=== PATIENT | male | born 1955 | race Caucasian/White ===

== ENCOUNTER 2017-03-02 14:16 | Emergency (ER) | payer BC ==
[~2017-03-02] VITALS: Ht 185.4 cm; Wt 106.6 kg
[2017-03-02 14:16] VITALS: BP_SYST 121
[2017-03-02] MEDS ORDERED: LIDOCAINE VISCOUS 2%, 15 ML UDC MM ONE (15:15)
[2017-03-02 16:00] VITALS: BP_SYST 124
== END 2017-03-02 15:57 | disposition home or self-care (01) ==
LOC: SED 14:16
DX: L98.499 Non-pressure chronic ulcer of skin of other sites with unspecified severity (principal); K62.89 Other specified diseases of anus and rectum; I10 Essential (primary) hypertension; E78.5 Hyperlipidemia, unspecified; Z88.6 Allergy status to analgesic agent
CPT/HCPCS: 99283; J2001

== ENCOUNTER 2017-03-07 08:52 | Inpatient (IN) | payer BC ==
[~2017-03-07] VITALS: Ht 185.4 cm; Wt 103.4 kg
[2017-03-07] VITALS (7 sets, daily range): BP systolic 91–135
--- NOTE | 2017-03-07 09:00 | NUR ---
PT PLACED IN BED 7, REPORT ENDORSED TO EDER TRINH
--- NOTE | 2017-03-07 09:00 | NUR ---
Pt bib for further eval of rectal ulcers, no improvement last visit here on 03/02/17, was toldby primary PMD to return to ER for further eval.
--- NOTE | 2017-03-07 09:05 | NUR ---
Pt ambulated into ED c/c rectal ulcers. Pt states that he came to [facility] last sunday for the same problem and initially went to PMD today, but was recommended to come to ED. Upon inspection, skin non-intact, necrosis present on sacrum. No other injuries/complaints noted/per pt.
--- NOTE | 2017-03-07 09:08 | NUR ---
ER Dr. JENNINGS at bedside examining patient.
[2017-03-07] MEDS ORDERED: NACL 0.9% 1,000 ML IV SCH (09:10)
[2017-03-07] MEDS ORDERED: MORPHINE 2 MG/ML INJ. SYRINGE IVP ONE (09:15)
[2017-03-07] MEDS ORDERED: ONDANSETRON HCL 4 MG/2 ML VIAL IVP ONE (09:15)
--- NOTE | 2017-03-07 09:20 | NUR ---
Pt ambulated to radiology in stable condition.
--- NOTE | 2017-03-07 09:24 | NUR ---
Pt ambulated from radiology in stable condition.
--- NOTE | 2017-03-07 09:31 | NUR ---
Medication administered. Pt alex well. No adverse reactions noted.
--- NOTE | 2017-03-07 09:40 | NUR ---
Medication administered. Pt alex well. No adverse reactions noted.
[2017-03-07 09:46] LABS: BASOPHILS # (AUTO) 0.1 K/uL (0.0-0.2); BASOPHILS % (AUTO) 0.7 % (0.0-2.0); CALCIUM 8.8 mg/dL (8.4-11.0); CREATININE 1.17 mg/dL (0.55-1.30); EOSINOPHILS # (AUTO) 0.1 K/uL (0.0-0.4); EOSINOPHILS % (AUTO) 1.1 % (0.0-4.0); HEMATOCRIT 35.6 % (36-54); HEMOGLOBIN 11.9 g/dL (14.0-18.0); LYMPHOCYTES # (AUTO) 2.2 K/uL (1.0-5.5); LYMPHOCYTES % (AUTO) 17.1 % (20.5-51.5); MEAN CORPUSCULAR HEMOGLOBIN 31 pg (27-31); MEAN CORPUSCULAR HGB CONC 34 % (32-36); MEAN CORPUSCULAR VOLUME 93 fL (79.0-98.0); MONOCYTES # (AUTO) 0.3 K/uL (0.0-1.0); MONOCYTES % (AUTO) 2.4 % (1.7-9.3); NEUTROPHILS # (AUTO) 10.4 K/uL (1.8-7.7); NEUTROPHILS % (AUTO) 78.7 % (40.0-70.0); PLATELET COUNT (AUTO) 635 K/uL (130-430); POTASSIUM 3.5 mmol/L (3.5-5.1); RED BLOOD CELL COUNT(AUTO) 3.81 MIL/uL (4.2-6.2); RED CELL DISTRIBUTION WIDTH 14.1 % (9.0-15.0); WHITE BLOOD COUNT (AUTO) 13.1 K/uL (4.8-10.8)
[2017-03-07 09:48] LABS: PROTHROMBIN TIME 10.4 SECS (9.5-12.5)
--- NOTE | 2017-03-07 09:50 | NUR ---
Pt's anus was cleaned with betadine and ns, Dr Almaguer at bedside checking wound.
[2017-03-07 09:51] LABS: ALBUMIN 2.6 g/dL (3.4-4.8); TOTAL BILIRUBIN 0.6 mg/dL (0.0-1.0)
[2017-03-07] MEDS ORDERED: PIPERACILLIN/TAZOBACTAM 3.375 GM/VIAL (ZOSYN) IV ONE (09:54)
[2017-03-07] MEDS ORDERED: PIPERACILLIN/TAZO 3.375 GM in NS 50 ML IV ONE (10:00)
--- NOTE | 2017-03-07 10:08 | NUR ---
Patient will be admitted to [facility]. Admitted to TELEMETRY unit. Will go to room 120B. Belongings list completed. Summary report printed. Report will be given at bedside. Patient given written and verbal discharge instructions and verbalizes understanding. ER MD discussed with patient the results and treatment provided. Patient in stable condition. ID arm band removed. IV catheter removed intact and dressing applied, no active bleeding. Rx of [] given. Patient educated on pain management and to follow up with PMD. Pain Scale []. Opportunity for questions provided and answered.
[2017-03-07] MEDS ORDERED: METO50TA7 PO (10:16)
[2017-03-07] MEDS ORDERED: AMOX-423 PO (10:16)
[2017-03-07] MEDS ORDERED: HYDR-4100 PO (10:16)
[2017-03-07] MEDS ORDERED: LOSA1TAB36 PO (10:16)
[2017-03-07] MEDS ORDERED: LIP80 PO (10:16)
--- NOTE | 2017-03-07 10:26 | NUR ---
ADMISSION NOTE Received patient from ER via gurney. Patient admitted with diagnosis of perianal abscess. Patient is awake, alert, oriented X 3. Patient oriented to hospital room, call light, toileting, pain management and safety-teach back done. Patient informed that tobias will be his nurse and that their room number is 120B. Personal belongings checked and Belongings List documented. Call light within reach.
--- NOTE | 2017-03-07 10:28 | NUR ---
CONSULTATION PAGED REASON FOR CONSULTATION: SURGERY WAS CONSULT CALLED?: Y PERSON WHO WAS NOTIFIED: BLOSSOM CONSULTING PHYSICIAN: SERGIO HASSAN PALAEONTOLOGIST SPECIALTY: GENERAL DESIGN ENGINEERING INTERN PHONE NUMBER: [phone] REQUESTING PHYSICIAN: Kartik YOUNGUHAIR
[2017-03-07] MEDS ORDERED: NACL 0.9% 1,000 ML IV ONE (10:30)
[2017-03-07 11:20] LABS: BILIRUBIN,URINE NEGATIVE (NEGATIVE); BLOOD, URINE NEGATIVE (NEGATIVE); CLARITY/URINE CLEAR (CLEAR); COLOR,URINE YELLOW (YELLOW); GLUCOSE,URINE NEGATIVE (NEGATIVE); KETONES,URINE NEGATIVE (NEGATIVE); LEUKOCYTE ESTERASE ,URINE NEGATIVE (NEGATIVE); NITRITE, URINE NEGATIVE (NEGATIVE); PROTEIN URINE NEGATIVE (NEGATIVE); UROBILINOGEN,URINE 0.2 (0.2-1.0)
--- NOTE | 2017-03-07 13:00 | NUR ---
ROUNDS PT RESTING IN BED WITH AT BEDSIDE. C/O PAIN 09/09 BUT DOES NOT HAVE ANY PAIN MEDICATION ORDERED. CALL PLACED TO DR. MORTON. WILL WAIT FOR RETURN CALL. Addendum: 03/07/17 at 1305 by Annette Anderson RN SPOKE WITH DR. MORTON. PAIN MEDICATION ORDERS RECEIVED AND CARRIED OUT.
[2017-03-07] MEDS: MORPHINE 4 MG/ML INJ. SYRINGE IVP PRN ×3 (13:16→22:15)
--- NOTE | 2017-03-07 14:35 | NUR ---
ROUNDS PT AMBULATING IN ROOM IN NO ACUTE DISTRESS. WAITING TO BE SEEN BY DR. MARSHALL FOR SURGICAL CONSULT. PT STILL NOTED TO HAVE FOUL SMELLING DRAINAGE COMING FROM RECTAL ABSCESS. ABD DRESSING IN PLACE TO ABSORB DRAINAGE. SAFETY MEASURES IN PLACE WITH CALL LIGHT WITHIN REACH. PT ENCOURAGED TO USE CALL LIGHT FOR ASSISTANCE. VERBALIZED UNDERSTANDING.
[2017-03-07] MEDS ORDERED: DIATR MEGLU/DIATRIZ SOD 30 ML SOLUTION PO ONE (15:58)
--- NOTE | 2017-03-07 15:58 | NUR ---
MD ROUNDS PT SEEN AND EXAMINED BY DR. MORTON. ORDERS RECEIVED TO D/C TELE, FOR IVF AND FOR A CT ABD/PELVIS. PT AWARE OF POC. TELEMETRY REMOVED, CHARGE NURSE HILARY AND TAKE OUT WAITER AWARE OF STATUS CHANGE TO MED/SURG. PT DENIES ANY PAIN AT THIS TIME. STILL WAITING TO BE SEEN BY DR. MARSHALL. SAFETY MEASURES AND CALL LIGHT WITHIN REACH. PT ENCOURAGED TO USE CALL LIGHT FOR ASSISTANCE. VERBALIZED UNDERSTANDING.
--- NOTE | 2017-03-07 17:08 | NUR ---
MD ROUNDS PT SEEN AND EXAMINED BY DR. MARSHALL. PICTURES OF PERIANAL ABSCESS/WOUND TAKEN WITH THE ASSISTANCE OF DR. MARSHALL. PT UPDATED ON POC INCLUDING POSSIBLE SURGERY FOR TOMORROW. ENCOURAGED PT TO CONTINUE DRINKING CONTRAST. PT VERBALIZED UNDERSTANDING. WOUND CULTURES TAKEN AND SENT TO LAB. CALL LIGHT WITHIN REACH. PT ENCOURAGED TO USE CALL LIGHT FOR ASSISTANCE. VERBALIZED UNDERSTANDING.
[2017-03-07] MEDS: KCL 20 mEq in D5NS 1000 mL 1,000 ML IV SCH (18:09)
[2017-03-07] MEDS: PIPERACILLIN/TAZO 3.375/DEX-IS 50 ML IV SCH ×2 (18:14→23:45)
--- NOTE | 2017-03-07 18:45 | NUR ---
CLOSING NOTE PT RESTING COMFORTABLY AT THIS TIME, RECENTLY MEDICATED FOR PAIN. MRSA SWAB TAKEN AND SENT TO LAB. PT FINISHED ORAL CONTRAST AND IS WAITING TO HAVE CT A/P DONE. IVF INFUSING WELL INTO LT FA, NO S/S OF INFILTRATION NOTED. SAFETY MEASURES IN PLACE WITH CALL LIGHT WITHIN REACH. PT ENCOURAGED TO USE CALL LIGHT FOR ASSISTANCE. PT VERBALIZED UNDERSTANDING. WILL ENDORSE TO SITE DIRECTOR NURSE.
--- NOTE | 2017-03-07 20:00 | NUR ---
INITIAL NOTES Received patient, awake and alert, standing on the bedside tolerating without signs of distress and SOB. Vitals stable, with current pain o 5/10 manageable. Encouraged deep breathing exercises, explained the plan of care and verbalized understanding. With IV on the Left AC, 20g infusing well, clean dry intact. With foul smelling rectal abscess observed with drainage, grayish in color. Maintained on position of comfort. Call light within reach, will continue to monitor.
[2017-03-07] MEDS ORDERED: IOHEXOL 100 ML IV ONE (20:42)
--- NOTE | 2017-03-07 21:15 | NUR ---
PAGED paged to ask if the patient can have snack before having on NPO at midnight, okayed, orders made and carried out.
--- NOTE | 2017-03-07 22:00 | NUR ---
RN ROUNDS Patient on bed awake and alert and resting, maintained on position of comfort, breathing even and unlabored, no SOB noted, call light within reach will continue to monitor.
--- NOTE | 2017-03-08 00:07 | NUR ---
RN ROUNDS Patient on bed sleeping and resting, breathing even and unlabored, no SOB noted, call light within reach will continue to monitor. Addendum: 03/08/17 at 0655 by Alison Sellers RN Maintained on NPO post midnight verbalized understanding
--- NOTE | 2017-03-08 02:00 | NUR ---
RN ROUNDS Patient on bed sleeping and resting, no SOB noted, breathing even and unlabored, call light within reach will continue to monitor.
[2017-03-08] MEDS: MORPHINE 4 MG/ML INJ. SYRINGE IVP PRN ×6 (02:23→22:54)
[2017-03-08 03:50] VITALS: BP_SYST 108
--- NOTE | 2017-03-08 04:00 | NUR ---
RN ROUNDS Patient asleep on bed, no distress noted no sob noted, no pain noted, call light within reach, will continue to monitor.
[2017-03-08] MEDS: PIPERACILLIN/TAZO 3.375/DEX-IS 50 ML IV SCH ×4 (05:08→23:04)
--- NOTE | 2017-03-08 05:13 | NUR ---
rn notes laundry route driver at the bedside to assist with chg bath. iv abx hung and infusing well as ordered. no adverse reactions noted. will cont. to monitor. call light in reach.
[2017-03-08] MEDS: KCL 20 mEq in D5NS 1000 mL 1,000 ML IV SCH ×2 (05:35→16:44)
--- NOTE | 2017-03-08 06:55 | NUR ---
CLOSING NOTES Patient on bed sleeping and resting, breathing even and unlabored, no SOB noted. patient has pain of 8/10 all due medications given, maintained safety precaution, all needs met, IV infusing well, DR. Sauceda called and asked for consents, and patient on NPO, and if the results are in. Patient verbalized having a restful sleep, will endorse care to AM nurse, call light within reach, will continue to monitor.
[2017-03-08 07:04] LABS: BASOPHILS # (AUTO) 0.1 K/uL (0.0-0.2); BASOPHILS % (AUTO) 0.8 % (0.0-2.0); EOSINOPHILS # (AUTO) 0.2 K/uL (0.0-0.4); HEMATOCRIT 30.9 % (36-54); HEMOGLOBIN 10.4 g/dL (14.0-18.0); LYMPHOCYTES % (AUTO) 21.5 % (20.5-51.5); MEAN CORPUSCULAR HEMOGLOBIN 32 pg (27-31); MEAN CORPUSCULAR HGB CONC 34 % (32-36); MEAN CORPUSCULAR VOLUME 95 fL (79.0-98.0); MONOCYTES # (AUTO) 0.6 K/uL (0.0-1.0); MONOCYTES % (AUTO) 6.5 % (1.7-9.3); NEUTROPHILS # (AUTO) 6.5 K/uL (1.8-7.7); NEUTROPHILS % (AUTO) 69.2 % (40.0-70.0); PLATELET COUNT (AUTO) 548 K/uL (130-430); RED BLOOD CELL COUNT(AUTO) 3.25 MIL/uL (4.2-6.2); RED CELL DISTRIBUTION WIDTH 13.7 % (9.0-15.0); WHITE BLOOD COUNT (AUTO) 9.4 K/uL (4.8-10.8)
[2017-03-08 07:26] LABS: CALCIUM 8.3 mg/dL (8.4-11.0); CREATININE 1.18 mg/dL (0.55-1.30); POTASSIUM 3.7 mmol/L (3.5-5.1); TOTAL BILIRUBIN 0.6 mg/dL (0.0-1.0)
--- NOTE | 2017-03-08 07:45 | NUR ---
AM Rounds Patient resting in bed, awake, alert and oriented x4, states mild and tolerable pain level, patient states he usually needs pain medication every 4 hours and he knows to ask for medication if needed, educated the patient saloonkeeper light system and to call for any assistance, assessment complete, patient refused skin assessment at this time but states later nurse can assess perianal area, patient is aware of NPO status and surgery scheduled for today, no other needs at this time, bed in lowest position, two side rails up, call light within reach, bed near nurse's station, fall precautions in place, continuing to monitor.
[2017-03-08 08:09] VITALS: BP_SYST 104
--- NOTE | 2017-03-08 08:34 | NUR ---
GI CONSULT: MAKES ROUND, AND WANTS TO HAVE GI TO SEE THE PATIENT BEFORE SURGERY AT [address] MORTON AND GET AN ORDER FOR DR. MELISSA, GI CONSULT. AND DR. MELISSA HAS CALLED BACK. INFORM HIM THAT DR. MARSHALL WANTS PATIENT TO BE SEEN BY GI BEFORE SURGERY.
--- NOTE | 2017-03-08 08:42 | NUR ---
Nutrition Update Justin Scale 18 noted. Pt admitted for perianal abscess. Diet: NPO BMI: 30.1 kg/m2 RD to follow per nutrition care standards.
--- NOTE | 2017-03-08 09:02 | NUR ---
GI CONSULT CALLED TO DR MELISSA, RE: GI CLEARANCE PRIOR TO SURGERY. SPOKE TO DWAN
--- NOTE | 2017-03-08 09:15 | NUR ---
S/W Dr. Wong regarding GI consult, report given, Dr. Wong stated he may not be able to see the patient today prior to surgery and that he will speak with Dr. Sauceda directly.
--- NOTE | 2017-03-08 09:30 | NUR ---
RN Rounds Patient resting in bed, awake, states moderate pain level but he would like to wait for pain medication until it's due, patient states he had a bowel movement with some blood at this time, patient states he would like to rest for now, no other needs at this time, bed in lowest position, two side rails up, call light within reach, bed close to nurse's station, fall precautions in place.
--- NOTE | 2017-03-08 10:39 | NUR ---
RN rounds/pain medication Patient resting in bed, speaking with Identification Clerk at bedside, patient complaining of 7/10 perianal pain at this time, educated on pain medication and potential side effects, patient verbalized understanding, IV site is patent and infusing well, no other needs at this time, bed in lowest position, two side rails up, call light within reach, bed close to nurse's station, fall precautions in place.
--- NOTE | 2017-03-08 11:40 | NUR ---
RN Rounds/IV antibiotic patient resting in bed, denies pain at this time, at bedside, educated the patient on IV antibiotic and potential side effects, patient verbalized understanding, IV site is patent and infusing well, no other needs at this time, bed in lowest position, two side rails up, bed close to nurse's station, call light within reach, fall precautions in place.
[2017-03-08 12:31] VITALS: BP_SYST 118
--- NOTE | 2017-03-08 14:26 | NUR ---
S/w OR regarding surgery time, spoke with Rozina who stated Dr. Sauceda put the surgery on hold until GI consult can come to see the patient. Rozina called Dr. Sauceda, nurse spoke with Dr. Sauceda who stated GI MD was going to "scope" the patient first, so the surgery may not be today after, informed Dr. Sauceda that GI MD has not been by yet today. Rozina to follow up again with Dr. Sauceda, nurse informed the patient, who verbalized understanding.
--- NOTE | 2017-03-08 14:43 | NUR ---
RN rounds/pain medication Patient resting in bed, patient complaining of 7/10 perianal pain at this time, educated on pain medication and potential side effects, patient verbalized understanding, IV site is patent and infusing well, no other needs at this time, bed in lowest position, two side rails up, call light within reach, bed close to nurse's station, fall precautions in place.
--- NOTE | 2017-03-08 16:05 | NUR ---
Dr. Wong here to see the patient, updates given, will follow up with any new orders. Addendum: 03/08/17 at 1648 by Porfirio Dash RN Explained to the patient that surgery is the best option for him, patient agreeable, Dr. Wong to call and inform Dr. Sauceda.
[2017-03-08 16:45] VITALS: BP_SYST 120
--- NOTE | 2017-03-08 16:48 | NUR ---
RN Rounds Patient resting in bed, awake, states moderate but tolerable pain level, new bag of IV Fluids hung at this time, IV site is patent and infusing well, no other needs at this time, bed in lowest position, call light in the patient's hand, two side rails up, fall precautions in place.
--- NOTE | 2017-03-08 17:02 | NUR ---
Paged Dr. Resendez (Dr. Velazquez power tong operator) regarding dressing being saturated with blood, dressing was undone to inspect the site, bleeding is from Hemovac insertion, Hemovac was discontinued this morning by Dr. Resendez, clean gauze was placed over the site and a new good bandage was applied, no further bleeding from the site at this time, paged to inform Addendum: 03/08/17 at 1704 by Porfirio Dash RN wrong patient
--- NOTE | 2017-03-08 17:20 | NUR ---
S/w Dr. Sauceda gave orders for new consent to read adding the diverting colostomy as explained to the patient by Dr. Wong, will follow up with consent signing.
--- NOTE | 2017-03-08 17:42 | NUR ---
RN Rounds/Medication/Consent Patient resting in bed, states pain is moderate at this time and can wait for when pain medication is due, educated on IV antibiotic and potential side effects, patient verbalized understanding, IV site is patent and infusing well, patient signed consent for surgery with no further questions, patient requesting clear liquids for dinner, will paged Dr. Sauceda for orders.
--- NOTE | 2017-03-08 17:48 | NUR ---
Dr. Sauceda/Clear liquids Dr. Sauceda stated ok to give clear liquids, patient to be NPO after midnight, explained this to the patient, who verbalized understanding.
--- NOTE | 2017-03-08 18:12 | NUR ---
Dr. Oden rounds here to see the patient at the bedside, patient requested sleeping medication, Dr. Oden to order.
--- NOTE | 2017-03-08 18:55 | NUR ---
Closing note Patient resting in bed, awake, stating 8/10 pain level ,educated on pain medication and potential side effects, patient verbalized understanding, IV site is patent and infusing well, all needs met, will endorse report to NOC shift nurse, bed in lowest position, two side rails up, call light within reach, fall and aspiration precautions in place.
--- NOTE | 2017-03-08 19:30 | NUR ---
INITIAL NOTE Patient resting on the bed. No acute distress. Respiration even and unlabored. AAO x 4. Denied of pain at this time. Skin warm and dry to touch. IV intact to LAC, no redness, no swelling, no drain. On KCl 20mEq in D5 NS at 100ml/hr, infusing well. Discussed the safety issue, use call light when need help, plan of care, and NPO after midnight, verbally understanding. at bedside. Safety measure maintained. Bed in low position, side rails up. Call light within reached. Refused bed alarm, explained the risk and benefit, verbally understanding. Will continue to monitor.
[2017-03-08 20:00] VITALS: BP_SYST 141
--- NOTE | 2017-03-08 21:30 | NUR ---
GEOSCIENCES FACULTY MEMBER CHANGED BED LINEN AND CLEAN UP PATIENT
--- NOTE | 2017-03-08 22:55 | NUR ---
MORPHINE GIVEN Patient c/o buttock pain 10/09. Morphine 4mg IVP given as ordered. No acute distress. safety measure maintained. Call light within reached. Continue to monitor.
[2017-03-08] MEDS: ZOLPIDEM TARTRATE 5 MG TABLET PO PRN (23:09)
[2017-03-09 00:12] VITALS: BP_SYST 130
--- NOTE | 2017-03-09 00:15 | NUR ---
ROUND Patient resting on the bed with eyes closed. No acute distress. IV intact, IVF infusing well. Safety measure maintained. Call light within reached. Bed in low position, side rails up. Continue to monitor.
[2017-03-09] MEDS: KCL 20 mEq in D5NS 1000 mL 1,000 ML IV SCH ×3 (03:17→20:05)
[2017-03-09] MEDS: MORPHINE 4 MG/ML INJ. SYRINGE IVP PRN ×5 (03:28→22:35)
--- NOTE | 2017-03-09 03:28 | NUR ---
MORPHINE GIVEN Patient c/o buttock pain 10/09. Morphine 4mg IVP given as ordered. No acute distress. safety measure maintained. Call light within reached. Continue to monitor.
[2017-03-09 04:46] VITALS: BP_SYST 110
--- NOTE | 2017-03-09 05:20 | NUR ---
ROUND Patient resting on the bed with eyes closed. No acute distress. Respiration even and unlabored. BIPAP in placed. IV intact, IVF infusing well. Safety measure maintained. Bed in low position, side rails up. Call light within reached. Continue to monitor.
[2017-03-09] MEDS: PIPERACILLIN/TAZO 3.375/DEX-IS 50 ML IV SCH ×4 (06:09→23:29)
[2017-03-09 06:31] LABS: BASOPHILS % (AUTO) 0.4 % (0.0-2.0); EOSINOPHILS # (AUTO) 0.2 K/uL (0.0-0.4); EOSINOPHILS % (AUTO) 2.1 % (0.0-4.0); HEMOGLOBIN 10.5 g/dL (14.0-18.0); LYMPHOCYTES # (AUTO) 1.9 K/uL (1.0-5.5); LYMPHOCYTES % (AUTO) 24.5 % (20.5-51.5); MEAN CORPUSCULAR HEMOGLOBIN 33 pg (27-31); MEAN CORPUSCULAR HGB CONC 34 % (32-36); MEAN CORPUSCULAR VOLUME 96 fL (79.0-98.0); MONOCYTES # (AUTO) 0.4 K/uL (0.0-1.0); MONOCYTES % (AUTO) 5.5 % (1.7-9.3); NEUTROPHILS # (AUTO) 5.1 K/uL (1.8-7.7); NEUTROPHILS % (AUTO) 67.5 % (40.0-70.0); PLATELET COUNT (AUTO) 543 K/uL (130-430); RED BLOOD CELL COUNT(AUTO) 3.23 MIL/uL (4.2-6.2); RED CELL DISTRIBUTION WIDTH 14.1 % (9.0-15.0); WHITE BLOOD COUNT (AUTO) 7.6 K/uL (4.8-10.8)
[2017-03-09 06:43] LABS: PROTHROMBIN TIME 10.6 SECS (9.5-12.5)
[2017-03-09 06:46] LABS: CALCIUM 8.2 mg/dL (8.4-11.0); CREATININE 1.08 mg/dL (0.55-1.30); POTASSIUM 3.9 mmol/L (3.5-5.1); TOTAL BILIRUBIN 0.4 mg/dL (0.0-1.0)
--- NOTE | 2017-03-09 06:50 | NUR ---
CLOSING NOTE Patient resting on the bed. No acute distress. Respiration even and unlabored. BIPAP applied while patient sleeping. IV intact, IVF infusing well. PRN pain med given around clock. All needs met. Hourly rounding during shift. Safety measure maintained. Bed in low position, side rails up. Call light within reached. Will endorse to morning shift nurse.
--- NOTE | 2017-03-09 08:04 | NUR ---
OPENING NOTE PT A/O X 4, RESTING IN BED, BREATHING IS EVEN AND UNLABORED W/ NO SIGNS OF DISTRESS NOTED AT THIS TIME. VITAL SIGNS STABLE. PT C/O PERIANAL PAIN OF /10. ADMINISTERED PRN PAIN MEDICATION AND WILL REASSESS AND CONTINUE TO MONITOR PT. PT AWARE THAT HE WILL HAVE SURGERY TODAY, INFORMED HIM I WILL NOTIFY HIM OF TIME SOON I FIND OUT. SAFETY MEASURES IN PLACE AND CALL LIGHT W/ PT. INSTRUCTED PT TO CALL IF ASSISTANCE NEEDED AND PT VERBALIZED UNDERSTANDING.
[2017-03-09 08:10] VITALS: BP_SYST 130
--- NOTE | 2017-03-09 10:00 | NUR ---
ROUNDS PT RESTING IN BED W/ NO SIGNS OF DISTRESS NOTED AT THIS TIME. PT AWARE THAT SURGERY WILL BE AT 1PM. SAFETY MEASURES IN PLACE AND WILL CONTINUE TO MONITOR PT.
--- NOTE | 2017-03-09 12:00 | NUR ---
ROUNDS PT RESTING IN BED W/ NO SIGNS OF DISTRESS NOTED AT THIS TIME. CONFIRMED PT PREPPED FOR SURGER AND CHG BATH COMPLETED. PT C/O PERIANAL PAIN OF 7/10, ADMINISTERED DUE ANTIBIOTIC AND PAIN MEDICATION. PROVIDED PT EDUCATION REGARDING MEDICATION USES AND POSSIBLE SIDE EFFECTS. SAFETY MEASURES IN PLACE, CALL LIGHT W/ PT AND INFORMED TO CALL IF ASSISTANCE NEEDED. PT VERBALIZED UNDERSTANDING. WILL CONTINUE TO MONITOR PT.
[2017-03-09 12:06] VITALS: BP_SYST 107
--- NOTE | 2017-03-09 12:34 | NUR ---
DISCHARGE PLANNING Called [facility] [phone] noted in bar notes, went thru prompts unable to speak with specialty sales representative, recording stated to try calling back at later time. Meanwhile; Faxed [facility] [phone] Ref#[id number] requesting for contracted [facility] and Home Health vendors for discharge planning.
--- NOTE | 2017-03-09 12:50 | NUR ---
PT TO OR IN STABLE CONDITION
[2017-03-09] MEDS ORDERED: LR 1,000 ML IV SCH (14:18)
[2017-03-09] MEDS ORDERED: METOCLOPRAMIDE HCL 10 MG/2 ML VIAL IVP PRN (14:30)
[2017-03-09] MEDS ORDERED: HYDROmorphone 2 MG/ML VIAL IVP PRN (14:30)
[2017-03-09] MEDS ORDERED: HYDROmorphone 1 MG INJ. 1 MG/ML AMPUL IVP PRN ×2 (14:30)
[2017-03-09] MEDS ORDERED: NEOSTIGMINE METHYLSULFATE 1 MG/ML, 10 ML VIAL IVP ONE (15:00)
[2017-03-09] MEDS ORDERED: SUCCINYLCHOLINE CHLORIDE 20 MG/ML(QUELICIN) IVP ONE (15:00)
[2017-03-09] MEDS ORDERED: GLYCOPYRROLATE 0.2 MG/ML VIAL IJ ONE (15:00)
[2017-03-09] MEDS ORDERED: NS IRRIG SOLN 1000 ML IR ONE (15:00)
[2017-03-09] MEDS ORDERED: MIDAZOLAM HCL 5 MG/ML VIAL (VERSED) IV ONE (15:00)
[2017-03-09] MEDS ORDERED: ROCURONIUM BROMIDE 10 MG/ML (ZEMURON) IV ONE (15:00)
[2017-03-09] MEDS ORDERED: SEVOFLURANE 15 MIN GAS INH ONE (15:00)
[2017-03-09] MEDS ORDERED: PROPOFOL 200MG/ 20ML VIAL (DIPRIVAN) IV ONE (15:00)
[2017-03-09] MEDS ORDERED: ONDANSETRON HCL 4 MG/2 ML VIAL IVP ONE (15:00)
[2017-03-09] MEDS ORDERED: fentaNYL CITRATE 250 MCG/5 ML AMP IV ONE (15:00)
[2017-03-09] MEDS ORDERED: LR 1,000 ML IV.SOLN IV ONE (15:00)
[2017-03-09] MEDS ORDERED: HYDROmorphone 2 MG/ML VIAL ONE (15:05)
[2017-03-09] MEDS ORDERED: HYDROmorphone 1 MG INJ. 1 MG/ML AMPUL ONE ×2 (15:15→15:53)
--- NOTE | 2017-03-09 16:01 | NUR ---
PATIENT BACK FROM OR
--- NOTE | 2017-03-09 16:15 | NUR ---
ROUNDS / DR. MORTON AT BEDSIDE PT BACK FROM SURGERY, IN STABLE CONDITION, O2 SATS LOW AT 88, O2 AT 2L VIA NC ADMINISTERED AND INCREASED TO 92. GARCIA CATHETER FROM SURGERY INTACT AND DRAINING CLEAR YELLOW URINE. NEW IV SITE ON RIGHT HAND, 18G, CLEAN, DRY AND INTACT W/ NO SIGNS OF REDNESS OR SWELLING. SURGICAL DRESSING ON [place] IS CLEAN DRY AND INTACT. DR. MORTON AT BEDSIDE. PT IS REQUESTING WATER OR ICE CHIPS. PER DR. MORTON, ICECHIPS OK, AND IS FOLLOWING UP W/ DR. MARSHALL REGARDING DIET. SAFETY MEASURES IN PLACE AND CALL LIGHT W/ PT. WILL CONTINUE TO MONITOR PT.
[2017-03-09] MEDS: VALSARTAN 160 MG TABLET (DIOVAN) PO SCH ×2 (17:45→20:05)
--- NOTE | 2017-03-09 18:05 | NUR ---
CONSULT FOR DR. CARMONA CALLED SPOKE TO ANTONIO. REASON FOR CONSULT: NECROTIZING FASCIITIS
[2017-03-09 18:20] VITALS: BP_SYST 149
--- NOTE | 2017-03-09 18:30 | NUR ---
CLOSING NOTE PT RESTING IN BED W/ NO SIGNS OF DISTRESS NOTED. IS AT BEDSIDE. PT C/O PAIN OF 9/10 AT SURGICAL SITES. ADMINISTERED PRN PAIN MEDICATIONS AND WILL REASSESS AND CONTINUE TO MONITOR PT. ADMINISTERED DUE ANTIBIOTICS AND PROVIDED PT EDUCATION REGARDING MEDICATION USES AND POSSIBLE SIDE EFFECTS. SAFETY MEASURES IN PLACE, CALL LIGHT WITH PT AND INSTRUCTED PT TO CALL IF ASSISTANCE NEEDED. WILL CONTINUE TO MONITOR PT AND ENDORSE TO NOC SHIFT RN.
[2017-03-09 19:38] VITALS: BP_SYST 147
--- NOTE | 2017-03-09 19:39 | NUR ---
Opening Note Patient and bedside report received from day shift nurse, Isamar RN. Patient is AAO x 4 and resting in bed, watching TV. Vital signs are stable. No s/s of acute distress. IV site to right hand 18g is CDI and infusing IVF as ordered. Abdominal dressing is CDI with no active bleeding or soiling noted at this time. LLQ colostomy bag present, no output noted at this time. Spencer catheter intact and draining urine by gravity. SCDS on to bilateral lower extremities. Educated patient regarding his NPO order but ice chips are okay per MD. Plan of care discussed; patient is agreeable with no questions or concerns at this time. Educated and encouraged patient on how to use incentive spirometer and its benefits. Spouse at bedside. Safety and fall precautions discussed. Call light to right hand, educated pt. to use for any needs. Will montior closely.
--- NOTE | 2017-03-09 20:53 | NUR ---
Avila Catheter Patient used call light to request for avila catheter to be checked. He was complaining that the tube felt "short" and so I just readjusted the way it was hung on the side of the bed. Patient denies any other needs at this time. Encouraged patient to use call light for any assistance. Will monitor closely.
[2017-03-09] MEDS: ZOLPIDEM TARTRATE 5 MG TABLET PO PRN (22:35)
--- NOTE | 2017-03-09 22:41 | NUR ---
PAIN Patient is awake with complaints of severe pain to abdomen. Abdominal dressing is CDI with no active bleeding noted. Morphine IVP given as ordered. Ambien also administered as ordered with sip of water only. Patient states he is unable to get comfortable due to the pain. See EMAR for details. Educated patient regarding medication and potential side effects. Patient verbalized understanding. Tangent given as requested. Safety and fall precautions are in place. Bed is locked and in the lowest position. Call light to right hand. Will monitor closely.
--- NOTE | 2017-03-09 23:32 | NUR ---
ZOSYN Due Zosyn administered as ordered. See EMAR for details. Educated patient regarding medication and potential side effects. Denies any concerns at this time. Safety and fall precautions are in place. Bed is locked and in the lowest position. Room near nurses station. Call light to right hand. Will monitor closely.
[2017-03-10] VITALS (9 sets, daily range): BP systolic 125–163
--- NOTE | 2017-03-10 00:02 | NUR ---
PAGING DR. MORTON TO REPORT CONTINUED PAIN Paging Dr. Morton to report patient's continued abdominal pain "11/09" and to request for orders. Patient states Morphine was effective but he is still unable to achieve pain relief goal and stated that Sundance PO usually works for him as far as pain management. Will report to MD when MD calls back.
--- NOTE | 2017-03-10 00:03 | NUR ---
Jasen Oden, dialed [phone], s/w Ad.
--- NOTE | 2017-03-10 00:10 | NUR ---
SPOKE TO DR. MORTON WITH NEW ORDERS Spoke to Dr. Morton to report patient's unrelieved pain with Morphine IVP and that patient requested [place]. Dr. Morton mentioned patient may not receive relief from [place] and ordered Dilaudid 4mg IVP every 4 hours as needed for severe (7-10) pain and to discontinue current Morphine order. Educated patient on new orders. Will carry out.
[2017-03-10] MEDS: HYDROmorphone 2 MG/ML VIAL IVP PRN ×6 (02:49→23:24)
--- NOTE | 2017-03-10 02:54 | NUR ---
Pain Patient is awake, tossing and turning in bed with complaints of severe "10/10" pain to abdomen and rectal area. Dilaudid 4mg IVP was administered as ordered. See EMAR for details. Medication and potential side effects were discussed with patient who verbalized understanding and added "I hope this works better than the other one I've been getting, I just can't get comfortable enought to sleep throughout the night." Safety and fall precautions are in place. Call light placed to right hand. Bed alarm on. Will monitor closely.
--- NOTE | 2017-03-10 03:21 | NUR ---
RN ROUNDS/PT. RESTING RN rounds done. Patient appears to be resting quietly in bed with eyes closed. Respirations are even and unlabored with visible chest rise and fall. HR 83 on tele monitor. No s/s of acute distress. Safety and fall precautions are in place. Call light to right hand. Will continue to monitor.
--- NOTE | 2017-03-10 04:40 | NUR ---
RN ROUNDS Patient is resting in bed with eyes closed. Arousable by verbal stimuli. Denies any needs at this time. States Dilaudid medication was effective and is able to continue getting rest. Safety and fall precautions are in place. Bed is locked and in the lowest position with bed alarm on. Robert light on on right hand side. Will continue to monitor.
[2017-03-10] MEDS: PIPERACILLIN/TAZO 3.375/DEX-IS 50 ML IV SCH ×4 (05:25→23:28)
[2017-03-10] MEDS: KCL 20 mEq in D5NS 1000 mL 1,000 ML IV SCH ×2 (05:25→14:46)
--- NOTE | 2017-03-10 05:47 | NUR ---
SACRAL DRESSING/DUE MEDS Sacral dressing due to soiling and dislodgement. Changed with assistance of Liban Kaur RN. Area was cleansed with normal saline, packed with iodoform and covered with 4x4 gauze and abdominal pad and silk tape. Patient tolerated well with no s/s of acute distress. Due IVPB and IVF administered as ordered. See EMAR. Patient denies any other needs at this time. Encouraged patient to use incentive spirometer when he's more awake. Reminded him to use call light for needs. Will continue to monitor.
[2017-03-10 06:03] LABS: BASOPHILS # (AUTO) 0.2 K/uL (0.0-0.2); BASOPHILS % (AUTO) 1.6 % (0.0-2.0); EOSINOPHILS # (AUTO) 0.1 K/uL (0.0-0.4); EOSINOPHILS % (AUTO) 1.2 % (0.0-4.0); HEMATOCRIT 32.1 % (36-54); HEMOGLOBIN 10.7 g/dL (14.0-18.0); LYMPHOCYTES # (AUTO) 1.6 K/uL (1.0-5.5); LYMPHOCYTES % (AUTO) 13.7 % (20.5-51.5); MEAN CORPUSCULAR HEMOGLOBIN 32 pg (27-31); MEAN CORPUSCULAR HGB CONC 33 % (32-36); MEAN CORPUSCULAR VOLUME 95 fL (79.0-98.0); MONOCYTES # (AUTO) 0.6 K/uL (0.0-1.0); MONOCYTES % (AUTO) 5.6 % (1.7-9.3); NEUTROPHILS # (AUTO) 9.1 K/uL (1.8-7.7); NEUTROPHILS % (AUTO) 77.9 % (40.0-70.0); PLATELET COUNT (AUTO) 610 K/uL (130-430); RED BLOOD CELL COUNT(AUTO) 3.37 MIL/uL (4.2-6.2); RED CELL DISTRIBUTION WIDTH 14.1 % (9.0-15.0); WHITE BLOOD COUNT (AUTO) 11.6 K/uL (4.8-10.8)
[2017-03-10 06:14] LABS: ALBUMIN 2.1 g/dL (3.4-4.8); CALCIUM 8.2 mg/dL (8.4-11.0); CREATININE 1.09 mg/dL (0.55-1.30); POTASSIUM 4.5 mmol/L (3.5-5.1); TOTAL BILIRUBIN 0.4 mg/dL (0.0-1.0)
--- NOTE | 2017-03-10 06:58 | NUR ---
C/O PAIN/CLOSING NOTES Patient is awake with c/o severe "7/10" pain to abdomen and rectal area. Patient was given Dilaudid 4mg IVP as ordered PRN for severe pain. Educated patient regarding medication and potential side effects. Also educated patient on Dilaudid's potential side effects of constipation. Patient verbalized understanding. All needs met throughout shift. Patient is stable with no s/s of acute distress. Safety and fall precautions maintained. Will endorse care to oncoming day shift nurse. Will also endorse day shift nurse to follow up on wound care consult and Dr. Hartmann to see patient for ID consult.
--- NOTE | 2017-03-10 07:30 | NUR ---
Rounds Resting perianal pain is much better after Dilaudid given earlier 06/09 tolerable as verbalized, dressing intact , colostomy stoma pink, no drainage, continues monitoring due to high dose of pain medication, kept NPO with IV fluid infusing well.plan of care/safety discussed with patient.
--- NOTE | 2017-03-10 08:33 | NUR ---
PATIENT RESTING: Patient resting quietly. No acute distress noted. Vital signs within normal range.
--- NOTE | 2017-03-10 10:50 | NUR ---
MD rounds Patient awake/alert seen and examined by DR. marcano explained progress ,plan of care to the patient verbalized understanding , advance diet to clear liquid , colostomy with small amount of drainage serous ,abdomen mildly distended but soft, will continue to monitor.
[2017-03-10] MEDS: VALSARTAN 160 MG TABLET (DIOVAN) PO SCH ×2 (14:36→22:08)
--- NOTE | 2017-03-10 15:00 | NUR ---
Wound care/incentive spirometer Pre medicated patient prior to dressing changed erica anal area, removed dressing packing with iodoform gauze soak with serous drainage moderate amount no foul odor wound bed is pink to red no active bleeding , wash w/ saline then pat/dry pack with iodoform gauze covered by gauzed/abdominal pad , periwound intact no redness, patient able turn side to side to avoid pressure in the wound area; Using incentive spirometer reaching 1200ml , patient participating well with the health teaching
--- NOTE | 2017-03-10 19:27 | NUR ---
Opening Note Patient and bedside report received from day shift nurse, GAYATHRI Khalil. Patient is AAO x 4 and resting in bed, watching TV. Vital signs are stable. No s/s of acute distress. IV site to right hand 18g is CDI and infusing IVF as ordered. Abdominal dressing is CDI with no active bleeding or soiling noted at this time. LLQ colostomy bag present, no output noted at this time. Spencer catheter intact and draining urine by gravity. SCDS on to bilateral lower extremities. Educated patient regarding his clear liquid order. Tolerating well t this time and denies any nausea. Plan of care discussed; patient is agreeable with no questions or concerns at this time. Educated and encouraged patient on how to use incentive spirometer and its benefits. Able to inspire up to 1200 at this time. Spouse at bedside. Recliner given and educated patient and family on hospital policy with patient unable to lay down on hospital bed. Safety and fall precautions discussed. Call light to right hand, educated pt. to use for any needs. Patient was recently medicated for pain by day shift nurse. Will monitor closely.
--- NOTE | 2017-03-10 21:30 | NUR ---
BLANKET AND PHONE INFORMATION SYSTEMS AUDITOR Late entry due to patient care. Patient used call light to request for his phone to be connected to his portable pumper gauger apprentice. Rye also given as requested by patient. Denies any needs at this time. Dressing to buttocks remains CDI, will continue to monitor for soiling and dislodging. Encouraged patient to use call light for needs. Safety and fall precautions are in place. Bed alarm on. Room near nurses station. Will continue to monitor.
[2017-03-10] MEDS: metroNIDAZOLE 500 mg/NS 100 ML IV SCH (22:08)
--- NOTE | 2017-03-10 23:24 | NUR ---
PAIN Patient used call light to report that he's experiencing "7/10" pain to his abdomen and rectal area. Patient was given Dilaudid 4mg IVP as ordered PRN for severe pain. see EMAR for details. Patient was educated on pain medication and potential side effects. Encouraged patient to do deep breathing exercises as well for pain management using incentive spirometer. Patient able to return demonstration and is able to inspire up to 1200 at this time. Denies any other needs at this time. Encourage patient to use call light for any assistance. Bed is locked and in the lowest position. Call light to right hand. Will continue with plan of care.
--- NOTE | 2017-03-11 00:40 | NUR ---
RN ROUNDS Patient appears to be resting quietly with his eyes closed. Respirations are even and unlabored with visible chest rise and fall. No s/s of acute distress. Safety and fall precautions are in place. Bed alarm on. Bed is locked and in the lowest position. Will continue to monitor.
--- NOTE | 2017-03-11 01:30 | NUR ---
Resting Patient appears to be resting with eyes closed. No s/s of acute distress at this time. Safety and fall precautions are in place. Bed alarm on. Call light on lap. Room near nurses station. Will monitor.
[2017-03-11] MEDS: KCL 20 mEq in D5NS 1000 mL 1,000 ML IV SCH ×2 (02:22→14:42)
--- NOTE | 2017-03-11 02:26 | NUR ---
Bed bath Patient is receiving bed bath by ROSANA De Anda at this time. Due IVF infusing as ordered. Patient denies any needs at this time. Will monitor.
[2017-03-11] MEDS: HYDROmorphone 2 MG/ML VIAL IVP PRN ×5 (03:31→20:24)
--- NOTE | 2017-03-11 03:36 | NUR ---
Pain Patient was given Dilaudid 4mg IVP as ordered PRN for severe pain due to c/o "8/10" pain to sacral area. Patient was educated on medication and potential side effects. No other needs at this time. Will continue to monitor.
[2017-03-11 03:46] VITALS: BP_SYST 158
[2017-03-11] MEDS: PIPERACILLIN/TAZO 3.375/DEX-IS 50 ML IV SCH ×3 (04:58→17:52)
--- NOTE | 2017-03-11 05:00 | NUR ---
WOUND CARE Late entry due to patient care. Wound care provided to sacral area. Area was cleansed with normal saline, packed with iodoform, 4x4 gauze and covered with abdominal pad and silk tape. Patient tolerated well. Will monitor.
[2017-03-11] MEDS: metroNIDAZOLE 500 mg/NS 100 ML IV SCH ×3 (05:28→21:04)
[2017-03-11 06:17] LABS: BASOPHILS % (AUTO) 0.1 % (0.0-2.0); EOSINOPHILS # (AUTO) 0.3 K/uL (0.0-0.4); EOSINOPHILS % (AUTO) 3.1 % (0.0-4.0); HEMATOCRIT 30.9 % (36-54); HEMOGLOBIN 10.1 g/dL (14.0-18.0); LYMPHOCYTES # (AUTO) 1.5 K/uL (1.0-5.5); LYMPHOCYTES % (AUTO) 15.2 % (20.5-51.5); MEAN CORPUSCULAR HEMOGLOBIN 32 pg (27-31); MEAN CORPUSCULAR HGB CONC 33 % (32-36); MEAN CORPUSCULAR VOLUME 97 fL (79.0-98.0); MONOCYTES # (AUTO) 0.4 K/uL (0.0-1.0); MONOCYTES % (AUTO) 4.4 % (1.7-9.3); NEUTROPHILS % (AUTO) 77.2 % (40.0-70.0); PLATELET COUNT (AUTO) 529 K/uL (130-430); RED BLOOD CELL COUNT(AUTO) 3.19 MIL/uL (4.2-6.2); RED CELL DISTRIBUTION WIDTH 14.1 % (9.0-15.0); WHITE BLOOD COUNT (AUTO) 10.2 K/uL (4.8-10.8)
[2017-03-11 06:40] LABS: CALCIUM 8.1 mg/dL (8.4-11.0); CREATININE 0.85 mg/dL (0.55-1.30); POTASSIUM 4.1 mmol/L (3.5-5.1); TOTAL BILIRUBIN 0.4 mg/dL (0.0-1.0)
--- NOTE | 2017-03-11 06:45 | NUR ---
CLOSING NOTES Due meds administered as ordered. See EMAR. All needs met throughout shift. No significant changes from assessment. Patient and care will be endorsed to oncoming day shift nurse.
--- NOTE | 2017-03-11 07:35 | NUR ---
OPENING NOTES RECEIVED PATIENT FROM TRANSFORMER TESTER. PATIENT AWAKE, A/Ox4. NO ACUTE DISTRESS NOTED. RESPIRATION EVEN AND UNLABORED. SKIN WARM AND DRY TO TOUCH IV TO RIGHT HAND 18G WITH NO S/SX OF INFILTRATION/INFECTION NOTED. LLQ COLOSTOMY BAG INTACT, SITE WNL. EDUCATED ON INCENTIVE SPIROMETER 10x/HR, PATIENT DEMONSTRATED WELL. BILAT EXT WITH SCDs AND ARLYN WELL. ALL NEEDS MET. CALL LIGHT IN REACH. BED IN LOW AND LOCKED POSITION. CONTINUE TO MONITOR.
[2017-03-11] MEDS: VALSARTAN 160 MG TABLET (DIOVAN) PO SCH ×2 (08:09→20:22)
--- NOTE | 2017-03-11 08:10 | NUR ---
MEDICATIONS PATIENT GIVEN MORNING MEDICATION, EDUCATED PATIENT ON POTENTIAL SIDE EFFECTS, PATIENT VERBALIZED UNDERSTANDING, INSTRUCTED PATIENT TO USE CALL SCHULTZ OF CALL ON NURSE PHONE IF ASSISTANCE IS NEEDED, PATIENT VERBALIZED UNDERSTANDING, NO OTHER NEEDS AT THIS TIME, WILL CONTINUE TO MONITOR, FALL PRECAUTIONS IN PLACE.
--- NOTE | 2017-03-11 09:35 | NUR ---
ROUNDS PATIENT AWAKE IN BED. NO ACUTE DISTRESS. NO C/O DISCOMFORT AT THIS TIME. REPLACED NEW BATTERY TO TELE BOX. ALL NEEDS MET AT THIS TIME. CALL LIGHT IN REACH. CONT TO MONITOR
--- NOTE | 2017-03-11 11:20 | NUR ---
ROUNDS PATIENT IN BED AWAKE. NO ACUTE DISTRESS. RESPIRATION EVEN AND UNLABORED. SKIN WARM AND DRY. ALL NEEDS MET AT THIS TIME.BED IN LOW AND LOCKED POSITION. CONTINUE TO MONITOR. CALL LIGHT IN REACH
[2017-03-11 12:21] VITALS: BP_SYST 159
--- NOTE | 2017-03-11 13:41 | NUR ---
RN ROUNDS PATIENT RESTING IN BED, NO SIGNS OF DISTRESS NOTED, BREATHING IS EVEN AND UNLABORED, CALL SCHULTZ LEFT NEXT TO PATIENT'S HAND, BED IN LOWEST POSITION, SIDE RAILS UP, FALL PRECAUTIONS IN PLACE, WILL CONTINUE TO MONITOR.
--- NOTE | 2017-03-11 15:20 | NUR ---
ROUNDS PATIENT AWAKE IN BED. RESPIRATION EVEN AND UNLABORED. F/C DRAINING YELLOW/HARDY URINE. COLOSTOMY WITH BROWNISH OUTPUT. DENIES DISCOMFORT AT THIS TIME. DOES NOT WANT TO WATCH TV; JUST WANTS TO REST REQUESTING DOOR TO BE CLOSED, NEEDS MET. CALL LIGHT IN REACH. CONTINUE TO MONITOR
[2017-03-11 16:03] VITALS: BP_SYST 165
--- NOTE | 2017-03-11 16:43 | NUR ---
DC PLANNING: SNF, DME, & OSTOMY VENDORS ATTEMPTED TO CONTACT [facility]: [phone] FOR CM CONNECTION; THERE WERE NO PROMPTS TO CONNECT TO COVERING CM FOR IN-Pt STAY PER AUTH #: [id number]. CM SENT SECOND FAX REQUEST TO: [phone] TO OBTAIN REQUESTED PROVIDER CONTRACT LIST FOR SNF, DME, AND COLOSTOMY SUPPLY VENDORS. REC'D CONFIRMATION 8 PAGES WERE SENT SUCCESSFULLY AT 4:30 P.M. ON 03/11/17 PER REPORT # [id number].
--- NOTE | 2017-03-11 17:16 | NUR ---
ROUNDS PATIENT AWAKE IN BED. NO ACUTE DISTRESS. SKIN WARM AND DRY TO TOUCH. WOUND CARE PROVIDED, ARLYN WELL. ALL NEEDS MET. BED IN LOW AND LOCKED POSITION. CALL LIGHT IN REACH. CONTINUE TO MONITOR
[2017-03-11] MEDS: METOPROLOL SUCCINATE 50 MG TAB.SR.24H (TOPROL XL) PO SCH (17:30)
[2017-03-11] MEDS ORDERED: METOPROLOL SUCCINATE 50 MG TAB.SR.24H (TOPROL XL) PO ONE ×2 (17:49→19:45)
--- NOTE | 2017-03-11 18:49 | NUR ---
CLOSING NOTES PATIENT AWAKE ALERT. NO ACUTE DISTRESS. NO SOB. RESPIRATION EVEN AND UNLABORED. IV SITE TO RIGHT HAND WITH NO S/SX INFILTRATION/INFECTION NOTED. SKIN WARM AND DRY TO TOUCH. BED IN LOW AND LOCKED POSITION. SITTING AT BEDSIDE. CALL LIGHT IN REACH.
--- NOTE | 2017-03-11 19:28 | NUR ---
RN OPENING NOTE Received report from GAYATHRI Zamorano and GAYATHRI Mcleod. Patient A&O x 4. Patient in bedrest. Bed locked at lowest position. Call cintron within reach. Rails up for safety. Patient re-oriented to use of call cintron. SCDs for DVT prophylaxis. Left lower abdominal quadrant colostomy. Peripheral IV noted. Right hand 18 G patent and benign, saline locked. Patient on 2 L O2 for cardiac/respiratory support. Patient using IS at bedside and instructed to use at minimum 10 times per hour. Patient reports minor pain at this time, in abdomen and rectum.
--- NOTE | 2017-03-11 19:28 | NUR ---
rodriguez Oden for orders spoke with Filippo.
[2017-03-11 19:30] VITALS: BP_SYST 149
--- NOTE | 2017-03-11 19:34 | NUR ---
DR. MORTON NOTIFIED DR. MORTON THAT PATIENT'S HEART RATE HAS ELEVATED TO 140S AND PATIENT IS ASYMPTOMATIC, PATIENT HAS NO COMPLAINTS OF PAIN, NO COMPLAINTS OF SOB, PATIENT'S VITAL SIGNS ARE STABLE, ORDERED FOR PATIENT TO HAVE ONE TIME DOSE OF METOPROLOL 50MG PO.
[2017-03-11 20:33] VITALS: BP_SYST 140
--- NOTE | 2017-03-11 21:04 | NUR ---
Paging Dr. Oden Paging Dr. Oden to report patient's sustaining elevated heart rate >140's. Spoke to Pauline from exchange. Will wait for MD to call back. Primary nurse, GAYATHRI Jackson also informed.
--- NOTE | 2017-03-11 21:04 | NUR ---
DR. PRAVEEN CAGE / SINUS TACH Patient sustaining ST between 111 bpm to 140 bpm. Patient was given dilaudid for pain management which was effective. Pain level reported from patient decreased from 7/10 to 3/10. Patient asymptomatic despite tachycardia. Dr. Praveen cage.
[2017-03-11] MEDS: NORMAL SALINE 5 ML DISP.SYRIN IVF SCH (21:08)
--- NOTE | 2017-03-11 21:14 | NUR ---
DR. MORTON RETURNED PAGE Reported to Dr. Morton the patient's tachycardia and last BP, 140/80. Patient asymptomatic and resting in bed, wanting to sleep. Dr. Morton ordered for patient to receive his PRN sleeping pill and continue monitoring on laboratory monitor. Addendum: 03/11/17 at 2131 by Manuel Saldaña RN Patient requested for sleeping pill to be given at or around midnight.
--- NOTE | 2017-03-11 22:05 | NUR ---
NEW IV PLACEMENT Patient's Right hand IV 18G bleeding. IVPB ABX infusion paused. Right hand IV D/C. Placed new IV Right forearm anterior side 22 G. Patent and benign. Flushed w/ 10 ml NS. Initialed and dated. Restarted IVPB ABX via newly placed IV line. Patient denies any pain on new IV site.
[2017-03-11 23:21] VITALS: BP_SYST 136
[2017-03-12] MEDS: ZOLPIDEM TARTRATE 5 MG TABLET PO PRN (00:09)
[2017-03-12] MEDS: PIPERACILLIN/TAZO 3.375/DEX-IS 50 ML IV SCH ×4 (00:09→18:06)
[2017-03-12] MEDS: HYDROmorphone 2 MG/ML VIAL IVP PRN ×6 (00:16→23:08)
--- NOTE | 2017-03-12 00:23 | NUR ---
RN ROUNDING Patient awake and requested for pain management. Patient has no S/S distress. Resting in bed w/ good mobility. Able to turn to side by himself. Notified patient of orders to change dressing. Patient requested dressing to be changed at time of next PRN pain management time due. Patient given sleeping aid also according to Dr. Oden's previous TORB and patient's requested time.
--- NOTE | 2017-03-12 04:15 | NUR ---
RN ROUNDING Patient resting in bed. Patient C/O of abdominal pain increasing. Pain management to be given to patient.
[2017-03-12 04:30] VITALS: BP_SYST 139
[2017-03-12] MEDS: metroNIDAZOLE 500 mg/NS 100 ML IV SCH ×3 (05:12→21:27)
[2017-03-12] MEDS: NORMAL SALINE 5 ML DISP.SYRIN IVF SCH ×2 (05:16→21:28)
--- NOTE | 2017-03-12 06:30 | NUR ---
DRESSING CHANGE Patient wound underneath buttocks cleaned and dressed. Old dressing removed, wound cleaned w/ 4x4 and sterile NS. Clean idoform strips placed within wound beds. No drainage noted. 4x4 gauze placed over wound site x 2. Placed pad gauze over site and secured w/ ribbon tape.
[2017-03-12 06:49] LABS: BASOPHILS % (AUTO) 0.2 % (0.0-2.0); EOSINOPHILS # (AUTO) 0.4 K/uL (0.0-0.4); EOSINOPHILS % (AUTO) 3.9 % (0.0-4.0); HEMATOCRIT 32.7 % (36-54); HEMOGLOBIN 10.8 g/dL (14.0-18.0); LYMPHOCYTES # (AUTO) 1.9 K/uL (1.0-5.5); MEAN CORPUSCULAR HEMOGLOBIN 32 pg (27-31); MEAN CORPUSCULAR HGB CONC 33 % (32-36); MEAN CORPUSCULAR VOLUME 97 fL (79.0-98.0); MONOCYTES # (AUTO) 0.3 K/uL (0.0-1.0); MONOCYTES % (AUTO) 3.4 % (1.7-9.3); NEUTROPHILS % (AUTO) 72.5 % (40.0-70.0); PLATELET COUNT (AUTO) 564 K/uL (130-430); RED BLOOD CELL COUNT(AUTO) 3.38 MIL/uL (4.2-6.2); RED CELL DISTRIBUTION WIDTH 13.9 % (9.0-15.0); WHITE BLOOD COUNT (AUTO) 9.6 K/uL (4.8-10.8)
[2017-03-12 06:55] LABS: ALBUMIN 2.1 g/dL (3.4-4.8); CALCIUM 8.6 mg/dL (8.4-11.0); CREATININE 1.01 mg/dL (0.55-1.30); POTASSIUM 4.2 mmol/L (3.5-5.1); TOTAL BILIRUBIN 0.4 mg/dL (0.0-1.0)
--- NOTE | 2017-03-12 07:02 | NUR ---
RN CLOSING NOTE Patient A&O x 4. Patient in bedrest. Bed locked at lowest position. Call cintron within reach. Rails up for safety. Patient re-oriented to use of call cintron. SCDs for DVT prophylaxis. Left lower abdominal quadrant colostomy. Peripheral IV noted. Right forearm 22 G patent and benign, saline locked. Patient on 2 L O2 for cardiac/respiratory support. Patient using IS at bedside and instructed to use at minimum 10 times per hour. Patient perianal wound redressed during shift and will endorse to AM RN.
[2017-03-12 07:35] VITALS: BP_SYST 164
--- NOTE | 2017-03-12 08:00 | NUR ---
AM ASSESSMENT RECEIVED PT IN BED A/O X3. RES EVEN AND UNLABORED. VITALS STABLE. LEFT LOWER COLOSTOMY DRAINING WELL BROWN GREEN LIQUID COLOR DRAINAGE NOTED.MID ABD INCISION WITH DRESSING CLEAN DRY AND INTACT.WILL CONTINUE TO MONITOR
[2017-03-12] MEDS: VALSARTAN 160 MG TABLET (DIOVAN) PO SCH ×2 (08:47→21:23)
[2017-03-12] MEDS: METOPROLOL SUCCINATE 50 MG TAB.SR.24H (TOPROL XL) PO SCH (08:48)
--- NOTE | 2017-03-12 09:55 | NUR ---
pain pt c/o of mid abd pain 10/09. medicated with pain med as ordered. not in acute distress will continue to monitor
--- NOTE | 2017-03-12 10:30 | NUR ---
WOUND EVALUATION: Wound Consult received from Dr. Oden. Thank you, Dr. Oden, for the consult. Patient received in a Dio Bed with a mattress, awake, alert, and oriented. Patient is unable to turn independently. Justin Score is a 17. Past Medical History: Severe Crohn's Disease, Chronic Anxiety, Obesity, Hyperlipidemia, Hypertension, (history) Prostate Cancer. Recent Labs: WBC 9.6, RBC 3.38, hemoglobin 10.8, hematocrit 32.7, BUN 5, creatinine 1.01, albumin 2.1 PTT 25.0. Microbiology: MRSA screen results negative. Blood culture results 2 negative. Anal abscess culture positive for Escherichia coli, bacterioids fragilis group, and Prevotella intermedia. Intrinsic factors that delay wound healing: Hypoalbuminemia. Extrinsic factors that delay wound healing: Decreased mobility. Per patient record, patient had perianal abscesses with necrotizing fasciitis. Patient is able to ambulate independently. Patient is status post incision & drainage, debridement, and diverting colostomy by Dr. Sauceda on 03/09/17. Wound Assessment: 1. Right perianal area: Wound, present on admission. Per patient record, this is a perianal abscesses that had necrotizing fasciitis. Wound bed is 95% pink tissue, 5% yellow tissue. No odor, no drainage. Measures 5.8 cm x 5.0 cm x 2.0 cm. Undermining present from 7:00 to 3:00, deepest 2.3 cm at 12:00. Tunneling also present at 12:00, measuring 4.6 cm. 2. Left perianal area: Wound, present on admission. Per patient record, this is a perianal abscesses that had necrotizing fasciitis. Wound bed is 85% pink tissue, 15% yellow tissue. No odor, no drainage. Measures 6.6 cm x 3.0 cm x 2.5 cm. Undermining present from 9:00 to 10:00 and 12:00 to 6:00, deepest 4.8 cm at 12:00. Recommend: Ends wounds with normal saline. Pat dry. Apply sure prep to erica-wounds. Apply SilvaSorb gel to wound beds. Pack wound beds with 1 inch iodoform packing strip. Cover with foam dressing, cut to size. Secure with transparent dressings. Home wound care daily, and as needed for dressing soiling or dislodgment. 3. Left Abdominal Colostomy Site: Diverting colostomy site. Stoma is oval-shaped, and red in color. Measures 3.1 cm x 4.0 cm. Recommend: Cleanse site with normal saline. Pat dry. Apply sure prep to erica-stoma and surrounding tissue. Place Eakins ring around stoma. Cut colostomy pouch to shape and place over Eakins ring. Place hand over pouch for about 1 minute to allow colostomy pouch material to melt and mold to skin. Perform pouch and stoma care every 3 days, and as needed for pouch dislodgment. 4. Central Abdomen: Surgical incision from diverting colostomy procedure. Dressing is clean, dry and intact. No orders received for dressing. Nursing to follow up with Dr. Sauceda for wound care dressing orders. Recommend: Continue to monitor site for erythema or drainage. Reinforce dressing as necessary. Also recommend: Reposition encourage and assist patient as needed with repositioning side to side only every 2 hours with pillow support, and off-load pressure areas with pillows for pressure re-distribution. Perform skin care and monitor skin integrity Q shift. Use moisture barrier cream on buttocks and other moisture susceptible areas QID and as needed for soiling.
--- NOTE | 2017-03-12 10:45 | NUR ---
Left Abdominal Colostomy Site: Diverting colostomy site. Stoma is oval-shaped, and red in color. Measures 3.1 cm x 4.0 cm. Recommend: Cleaned site with normal saline. Pat dry. Apply sure prep to erica-stoma and surrounding tissue. Placed Eakins ring around stoma. Cut colostomy pouch to shape and placed over Eakins ring. Placed hand over pouch for about 1 minute to allow colostomy pouch material to melt and mold to skin. brown greenish liquid color drainage noted.
--- NOTE | 2017-03-12 10:45 | NUR ---
wound care rt perianal and left perianal wounds cleaned wounds with normal saline. Pat dry. Applied sure prep to erica-wounds. Packed wound beds with 1 inch iodoform packing strip. Coverd with foam dressing, applied with transparent dressings. pt tolerated well
--- NOTE | 2017-03-12 11:14 | NUR ---
DISCHARGE PLANNING Still pending insurance contracted SNF/DME/Home Health vendor list. No return call back and no fax was received. Called [facility] [phone] per bar notes went thru prompts and spoke with customer expert who was unable to access requested contracted list. DCP requested assistance from Rosa in admitting.
[2017-03-12] MEDS ORDERED: LACTOBACILLUS RHAMNOSUS GG 1 CAP CAPSULE PO ONE (12:00)
--- NOTE | 2017-03-12 12:26 | NUR ---
DC Planning: Contracted HH and DME list given by Ramona at [facility] insurance # HH: 1. [facility] # [phone] 2. [facility] # [phone] 3. [place] #[phone] 4. [place] # [phone] 5. [facility] #[phone] DME co's: 1. [facility] # [phone] 2. [employer] # [phone] 3. [facility]# [phone]
[2017-03-12 12:44] VITALS: BP_SYST 154
--- NOTE | 2017-03-12 13:00 | NUR ---
rounds pt stable. not in acute distress. resting comfortably.wioll continue to monitor
--- NOTE | 2017-03-12 14:16 | NUR ---
c/o of pain pt c/o of pain abdomen 10/09. medicated with pain med as ordered. no s/s of acute distress noted. will reassess for pain again
--- NOTE | 2017-03-12 15:12 | NUR ---
Dietitian Recommendation *Recommend continuing Full liquid diet per MD. *Recommend advance diet if/when medically appropriate.
--- NOTE | 2017-03-12 15:26 | NUR ---
DC planning: S/W Dr. Oden regarding discharge planning-he gave general order for arranging home health for daily dressing changes to abdominal incision, erica-anal dressing change, ostomy care, Physical therapy, DME supplies--IV abx per Dr. Deleon. I also asked GAYATHRI Scruggs to call Dr. Deleon to confirm IV abx for home (his recommendations are in his progress notes)-cx pending--PICC line? and to call Dr. Sauceda to confirm wound care orders for home health.
--- NOTE | 2017-03-12 16:04 | NUR ---
rounds pt stable not in acute distress. dr costa here seen pt. safety precautions maintained. will continue to monitor
--- NOTE | 2017-03-12 16:13 | NUR ---
DISCHARGE PLANNING Received faxed contracted home health vendor list. Faxed home health order to [phone] Jeannine [phone] [employer] [phone] Vladimir Edwards [phone] Danielle [phone] [facility] [phone]. DME order pending wound care notes, DCP will fax when available. Addendum: 03/12/17 at 1625 by Brigette Bennett DP Faxed DME order for Colostomy supplies to [facility] [phone]. will follow up. Bob; [place] in wound care submitted order for colostomy stater kit thru [employer].
--- NOTE | 2017-03-12 16:49 | NUR ---
Discharge planning: Dr. Deleon gave order for PICC line placement for long-term IV antibiotic treatment--Nurse Sheba made aware and she will give order to bunk house worker-- GAYATHRI
[2017-03-12 16:57] VITALS: BP_SYST 158
[2017-03-12 17:25] LABS: INR 1.1 (0.80-1.20)
--- NOTE | 2017-03-12 19:30 | NUR ---
closing notes pt stable pain better. not in acute distress. safety and fall precautions maintained. resting comfortably. report given to shift commander nurse
[2017-03-12 20:00] VITALS: BP_SYST 157
--- NOTE | 2017-03-12 20:00 | NUR ---
INITIAL CONTACT patient is alert oriented x 4. able to verbalized needs. patient breathing is even, unlabored, breath sound clear. abdomen is round, soft, bowel sound active. patient has mid abdominal dressing from incision, dressing marked for draining. patient also has colostomy on his left lower quadrant. colostomy bag intact. no leaking noted. radial and dorsalis pedis pulse regular. bilateral upper and lower extremity strength normal. patient has wound on his perianal area. wound is red, with scant yellow drainage. patient states pain is 3/10, tolerable and does not need pain medication at this time. plan of care discussed, and advised patient to call for assist PRN. will continue to monitor.
--- NOTE | 2017-03-12 20:20 | NUR ---
DRESSING CHANGE cleansed wound with wound cleanser, pad dry with sterile gauze, packed with iodoform, covered with optifoam and secured with tegaderm and tape. patient tolerated well. will continue to monitor.
[2017-03-12] MEDS ORDERED: SACCHAROMYCES BOULARDII 250 MG CAPSULE (FLORASTOR) PO SCH (21:00)
[2017-03-12] MEDS: LACTOBACILLUS RHAMNOSUS GG 1 CAP CAPSULE PO SCH (21:23)
[2017-03-12 22:44] VITALS: BP_SYST 154
--- NOTE | 2017-03-12 22:45 | NUR ---
RUN OF VTACH received call from Edutor that patient had run of vtach. went to check on patient. asked patient if he had any chest palpitation, pain or discomfort. patient denies and states that he just used incentive spirometer. vitals was taken: BP 154/80, HR 74, RR 12, O2 saturation 94%. gas charger was made aware. will continue to monitor patient.
[2017-03-13] MEDS: PIPERACILLIN/TAZO 3.375/DEX-IS 50 ML IV SCH ×5 (00:29→23:24)
--- NOTE | 2017-03-13 00:30 | NUR ---
ROUNDS patient called stating that his IV machine is making noise. informed patient that IV machine was making noise because of high pressure and advised patient to keep his arm straight. patient verbalized understanding. will continue to monitor.
[2017-03-13 01:44] VITALS: BP_SYST 157
--- NOTE | 2017-03-13 02:27 | NUR ---
ROUNDS patient called stating that the vital machine is making noise. informed him that the battery was running out. plugged vital machine. asked patient if he needed anything. patient denied. will continue to monitor.
[2017-03-13] MEDS: HYDROmorphone 2 MG/ML VIAL IVP PRN ×5 (03:13→21:31)
--- NOTE | 2017-03-13 03:50 | NUR ---
DRESSING CHANGE patient's dressing has become soiled and fell off. cleansed wound with wound cleanser, pad dry with sterile gauze, packed with iodoform, covered with optifoam and secured with tegaderm and tape. patient tolerated well. will continue to monitor.
[2017-03-13] MEDS: metroNIDAZOLE 500 mg/NS 100 ML IV SCH ×3 (05:10→21:28)
[2017-03-13] MEDS: NORMAL SALINE 5 ML DISP.SYRIN IVF SCH ×3 (05:11→23:24)
--- NOTE | 2017-03-13 06:20 | NUR ---
ROUNDS Patient lying in bed comfortably. patient states that his pain is 4/10, but tolerable. refilled patient's water per patient's request. advised patient to call PRN, he verbalized understanding.
--- NOTE | 2017-03-13 07:30 | NUR ---
AM ROUNDS: No s/s of distress noted. Will continue to monitor.
--- NOTE | 2017-03-13 07:49 | NUR ---
END OF SHIFT care endorsed to dayshift RN. informed him that dressing was changed today at 0330, picture taken yesterday by carry in worker. patient sitting at edge of bed when report given. no distress noted.
[2017-03-13] MEDS: VALSARTAN 160 MG TABLET (DIOVAN) PO SCH ×2 (08:23→21:28)
[2017-03-13] MEDS: METOPROLOL SUCCINATE 50 MG TAB.SR.24H (TOPROL XL) PO SCH (08:23)
[2017-03-13] MEDS: LACTOBACILLUS RHAMNOSUS GG 1 CAP CAPSULE PO SCH ×2 (08:23→21:26)
[2017-03-13 08:28] VITALS: BP_SYST 181
[2017-03-13] MEDS: SILVER 44.4 ML GEL.ER.ML. TP SCH (09:39)
--- NOTE | 2017-03-13 10:08 | NUR ---
PATIENT RESTING: Patient resting quietly. No acute distress noted. Will continue to monitor.
--- NOTE | 2017-03-13 10:30 | NUR ---
DISCHARGE PLANNING ANJEL Barrera Spoke with Deborah in intake dept at unable to accept case due to PPO contract issues. Jeannine [phone] spoke Sharon in intake dept confirmed faxed referral received and will return call with decision. Gilson [phone] spoke with Breezy in intake dept not contracted, unable to accept case. Guardian Jerry [phone] spoke with Mckinnon in intake dept who stated not contracted with patient insurance. [facility] [phone] spoke with Lucina in intake dept who stated pending insurance verification and will return call. Danielle [phone] spoke with Jie in intake dept not contracted with patient insurance. Addendum: 03/13/17 at 1124 by Brigette HERNANDEZ Faxed home health referral to [facility] [phone] [facility] [phone] [facility] [phone]. Faxed facesheet to [facility] [phone] for outpt IV medication, left voice message for Kacy requesting return call back. Addendum: 03/13/17 at 1214 by Brigette Bennett DP Spoke with Kacy at [facility] [phone] who confirmed IV medication order was received from MD and will be able to arrange outpt appointments with patient. Kacy stated patient has 10% co-pay and will notify patient. [facility] will keep Kacy informed on when patient will be discharged. Addendum: 03/13/17 at 1243 by Brigette Bennett DP [facility] [phone] spoke with Lucina in intake dept not contracted with patient insurance. [facility] spoke with Shamika in intake dept not contracted with patient insurance. [facility] [phone] spoke with Kwabena in intake dept not contracted with patient insurance. Jeannine [phone] spoke with Isamar in intake dept who stated not selected home health provider, not contracted. Addendum: 03/13/17 at 1354 by Brigette Bennett DP Spoke with Elvis in intake dept at [employer] [phone], re-faxed referral for DME [phone]. will follow up. [facility] [phone] left voice message for Isamar in intake dept requesting return call back. [facility] [phone] spoke with Yue in intake dept unable to accept patient due to contract issues with patient insurance. [facility] [phone] spoke with Martha confirmed fax was received and pending insurance verification. [facility] [phone] spoke with Shae in intake dept confirmed fax referral was received and currently verify insurance. [facility] [phone] spoke with intake dept confirmed fax was received and pending insurance verification. [facility] [phone] spoke with Julio in intake dept pending insurance verification. Addendum: 03/13/17 at 1422 by Brigette Bennett DP [facility] [phone] not working number. Called insurance JOYCE Pollock [phone] left voice message requesting return call back. Meanwhile; Faxed order to [facility] Attn: Kylee [phone] requesting assistance in finding contracted home health. Will follow up. Addendum: 03/13/17 at 1645 by Brigette Bennett DP spoke with Isamar in intake dept at [facility] not contracted. Spoke with Melinda in intake dept at [facility] who stated not contracted with patient insurance.
[2017-03-13] MEDS ORDERED: HYDROCHLOROTHIAZIDE 25 MG TABLET (HCTZ) PO ONE (12:00)
--- NOTE | 2017-03-13 12:00 | NUR ---
PATIENT RESTING: Late note due to patient care. Patient resting quietly. No acute distress noted. Will continue to monitor.
[2017-03-13 12:58] VITALS: BP_SYST 146
--- NOTE | 2017-03-13 13:40 | NUR ---
Discharge planning: I called [facility] gen#[phone]-opt#[phone] at approx 1300--s/w Harshil x30 min to get assistance with home health as over 8 HH agencies called from contracted list faxed to us by BS, have all said they are not contracted with [facility] and cannot take pt on service. Harshil said he doesn't know why all the agencies are telling us they are not contracted and gave me NPI# and said I need to contact Per Harshil, rifle case repairer assigned is Kylee Mendiola at [phone], and Harshil also said I should talk to benefits dept, which he transferred me to Narendra at in benefits. I explained our difficulties to Narendra-he is checking on benefits for pt as of 1329--has me on hold-- GAYATHRI
--- NOTE | 2017-03-13 14:01 | NUR ---
PATIENT RESTING: Patient resting quietly. No acute distress noted. Will continue to monitor.
--- NOTE | 2017-03-13 16:02 | NUR ---
PATIENT RESTING: Patient resting quietly. No acute distress noted. Will continue to monitor.
--- NOTE | 2017-03-13 16:37 | NUR ---
DISCHARGE PLANNING Spoke with Polina in intake dept at [facility] [phone] patient case accepted. Polina understood daily dressing changed needed and will be able to scheduled nursing staff to see patient on 03/15. Spoke with [facility] liaison Luis [phone] able to order needed colostomy supplies. DCP faxed [employer] pouch Item#[id number] Qty: 3 boxes Sure Prep Item#[id number] Qty: 3 boxes to Luis [phone]. Luis was made aware plan for possible discharge 03/14. Luis will have order reviewed by intake dept and will keep DCP informed. IV medication has been arranged as outpt at [facility] [phone]. DCP will keep Kacy in intake dept informed of patient discharge for scheduling.
[2017-03-13 16:56] VITALS: BP_SYST 142
--- NOTE | 2017-03-13 17:18 | NUR ---
DC planning: Order for FWW faxed to [facility] at fax#[phone]--I spoke with pt's social media director at pt's request-Heidi and also his manager insurance Ethan Montemayor-both got the [facility] plan center administrator Kelly on the phone for conference call-I explained in detail all the HH companies we call from the [facility] provided contracted vendor list all had declined saying that they are not contracted with [facility]--We tried a company [employer] (not on contracted list), who did agree to take pt on service when pt is discharged for wound care. Per Kelly at [facility], Peri is contracted. Kelly also said she had Jeannine on the phone, who now also agreed to take pt on service -they had declined pt earlier. We will proceed with [facility] at [phone]-I met with pt at bedside-his Pauline was there also, and explained plan is for discharge tomorrow and that [facility] had accepted him on service-pt will f/u with Dr. Deleon for IV antibiotics at the office, which I mentioned to HECTOR Mendoza-CODEY RN
--- NOTE | 2017-03-13 18:12 | NUR ---
CLOSING NOTE: All needs met. No change in assessment. Will endorse to NOC shift nurse.
--- NOTE | 2017-03-13 19:30 | NUR ---
opening notes Received pt in bed AAO x4. Respiration even nonlabored on room air. Denies pain at this time. Abdominal dressing dry and intact. New left upper arm piccline dressing dry and intact. Vital signs stable.
[2017-03-13 20:00] VITALS: BP_SYST 158
--- NOTE | 2017-03-13 21:31 | NUR ---
Med pass Due meds tolerated. Medicated for lower abdominal pain 10/09 with Dilaudid iv as ordered.
[2017-03-14] VITALS: BP_SYST 159
[2017-03-14] MEDS: NORMAL SALINE 5 ML DISP.SYRIN IVF SCH ×2 (05:27→14:04)
[2017-03-14] MEDS: metroNIDAZOLE 500 mg/NS 100 ML IV SCH ×2 (05:27→15:08)
[2017-03-14] MEDS: HYDROmorphone 2 MG/ML VIAL IVP PRN ×2 (05:29→09:39)
--- NOTE | 2017-03-14 05:30 | NUR ---
Colostomy Colostomy bag leaked. Replaced with new bag. Abdominal dressing changed site dry and incision intact.
[2017-03-14] MEDS: PIPERACILLIN/TAZO 3.375/DEX-IS 50 ML IV SCH ×2 (06:16→14:04)
--- NOTE | 2017-03-14 06:22 | NUR ---
closing notes No changed in pt condition. Needs attended.
[2017-03-14 06:30] LABS: BASOPHILS % (AUTO) 0.3 % (0.0-2.0); EOSINOPHILS # (AUTO) 0.3 K/uL (0.0-0.4); EOSINOPHILS % (AUTO) 3.4 % (0.0-4.0); HEMATOCRIT 35.3 % (36-54); HEMOGLOBIN 11.5 g/dL (14.0-18.0); LYMPHOCYTES # (AUTO) 1.5 K/uL (1.0-5.5); LYMPHOCYTES % (AUTO) 17.2 % (20.5-51.5); MEAN CORPUSCULAR HEMOGLOBIN 31 pg (27-31); MEAN CORPUSCULAR HGB CONC 33 % (32-36); MEAN CORPUSCULAR VOLUME 96 fL (79.0-98.0); MONOCYTES # (AUTO) 0.3 K/uL (0.0-1.0); MONOCYTES % (AUTO) 3.8 % (1.7-9.3); NEUTROPHILS # (AUTO) 6.8 K/uL (1.8-7.7); NEUTROPHILS % (AUTO) 75.3 % (40.0-70.0); PLATELET COUNT (AUTO) 503 K/uL (130-430); RED BLOOD CELL COUNT(AUTO) 3.69 MIL/uL (4.2-6.2); RED CELL DISTRIBUTION WIDTH 13.6 % (9.0-15.0); WHITE BLOOD COUNT (AUTO) 8.9 K/uL (4.8-10.8)
--- NOTE | 2017-03-14 06:45 | NUR ---
Rectal dressing Rectal dressing changed per pt request
[2017-03-14 06:57] LABS: ALBUMIN 2.5 g/dL (3.4-4.8); CALCIUM 9.3 mg/dL (8.4-11.0); CREATININE 1.06 mg/dL (0.55-1.30); POTASSIUM 4.4 mmol/L (3.5-5.1); TOTAL BILIRUBIN 0.4 mg/dL (0.0-1.0)
--- NOTE | 2017-03-14 07:20 | NUR ---
Opening Note Patient A/ox3, sitting up in bed watching television. No complaints of pain, nausea or difficulty breathing. Repositioned for comfort. Picc line to left upper arm, patent and flushed. Dressing on abdomen and perianal area clean, dry and intact. Extension of RN, INSIDE SALES MANAGER and Charge nurse written on white board. Patient verbalized understanding. Call light in reach and educated patient on correct use. Patient demonstrated understanding. Safety precautions in order.
[2017-03-14 08:21] VITALS: BP_SYST 154
--- NOTE | 2017-03-14 08:45 | NUR ---
0900 meds given at this time Patient began complaining of pain and morphine was administered. Patient tolerated well.
[2017-03-14] MEDS ORDERED: HYDROCHLOROTHIAZIDE 25 MG TABLET (HCTZ) PO SCH (09:00)
[2017-03-14] MEDS: LACTOBACILLUS RHAMNOSUS GG 1 CAP CAPSULE PO SCH (09:34)
[2017-03-14] MEDS: VALSARTAN 160 MG TABLET (DIOVAN) PO SCH (09:34)
[2017-03-14] MEDS: METOPROLOL SUCCINATE 50 MG TAB.SR.24H (TOPROL XL) PO SCH (09:35)
[2017-03-14] MEDS: SILVER 44.4 ML GEL.ER.ML. TP SCH (09:35)
--- NOTE | 2017-03-14 10:45 | NUR ---
Colostomy emptied 400ml of brown stool emptied from colostomy.
--- NOTE | 2017-03-14 11:30 | NUR ---
WOUND RE-EVALUATION: Patient received in a [place] Bed with an Atmos-Air 9000 mattress, awake, alert, and oriented. Patient is able to turn in bed and ambulate independently. Justin Score is an 18. Intrinsic factors that delay wound healing: Hypoalbuminemia. Extrinsic factors that delay wound healing: Decreased mobility. Per patient record, patient had perianal abscesses with necrotizing fasciitis. Patient is status post incision & drainage, debridement, and diverting colostomy by Dr. Sauceda on 03/09/17. Wound Assessment: Wound care for all sites performed by asphalt plant worker nurse this morning. Dressings not removed for assessment secondary to doing so decrease wound temperature and retard wound healing rate. 1. Right perianal area: Wound, present on admission. Per patient record, this is a perianal abscesses that had necrotizing fasciitis. Undermining present in wound. Tunneling also present at 12:00. 2. Left perianal area: Wound, present on admission. Per patient record, this is a perianal abscesses that had necrotizing fasciitis. Undermining present from 9:00 to 10:00 and 12:00 to 6:00, deepest at 12:00. Recommend continue: Ends wounds with normal saline. Pat dry. Apply sure prep to erica-wounds. Apply SilvaSorb gel to wound beds. Pack wound beds with 1 inch iodoform packing strip. Cover with foam dressing, cut to size. Secure with transparent dressings. Home wound care daily, and as needed for dressing soiling or dislodgment. 3. Left Abdominal Colostomy Site: Diverting colostomy site. Stoma is oval-shaped, and red in color. Recommend continue: Cleanse site with normal saline. Pat dry. Apply sure prep to erica-stoma and surrounding tissue. Place Eakins ring around stoma. Cut colostomy pouch to shape and place over Eakins ring. Place hand over pouch for about 1 minute to allow colostomy pouch material to melt and mold to skin. Perform pouch and stoma care every 3 days, and as needed for pouch dislodgment. 4. Central Abdomen: Surgical incision from diverting colostomy procedure. Dressing is clean, dry and intact. No orders received for dressing. Nursing to follow up with Dr. Sauceda for wound care dressing orders. Recommend continue: Continue to monitor site for erythema or drainage. Reinforce dressing as necessary. Also recommend continue: Reposition encourage and assist patient as needed with repositioning side to side only every 2 hours with pillow support, and off-load pressure areas with pillows for pressure re-distribution. Perform skin care and monitor skin integrity Q shift. Use moisture barrier cream on buttocks and other moisture susceptible areas QID and as needed for soiling.
--- NOTE | 2017-03-14 11:32 | NUR ---
Discharge planning: charlie Machuca fast food attendant, will call [facility] to f/u for FWW and ostomy supplies delivery date--I s/w nurse Luz and requested her to call surgeon, Dr. Sauceda, to see if pt is cleared for discharge from surgical standpoint. Per Dr. Oden, he will evaluate pt for discharge today also. ID Dr. Deleon's office has been arranging for pt to receive IV Invanz at his office, which the pt's Pauline confirmed she can take pt to the office. CODEY RN
--- NOTE | 2017-03-14 11:40 | NUR ---
DISCHARGE PLANNING Spoke with Luis [facility] liaison [phone] who confirmed DME order for FWW was received. Luis pending update on requested DME order for FWW and Colostomy supplies from [facility] office. Luis will follow up and return call to [facility]. Luis made aware plan to discharge patient home today. [facility] will follow up. Addendum: 03/14/17 at 1245 by Brigette HERNANDEZ spoke with Luis at [facility] confirmed FWW scheduled to be delivered to patient home 03/15 and Colostomy supplies scheduled to deliver to patient home no later then Friday 03/16. Director Aleja was updated.
--- NOTE | 2017-03-14 12:02 | NUR ---
Dr Sauceda paged Per special education case manager requests for patient clearance to discharge patient.
--- NOTE | 2017-03-14 12:30 | NUR ---
PHYSICAL THERAPY CO-SIGN The Physical Therapy Progress Notes documented by Optometrist have been reviewed. Reviewed/Co-Signed by: Shana Vasquez, PT Documentation Done by: Oli Maynard PTA I concur with the documentation of this FLOORS BUFFER. Plan: continue PT as per plan of care if he remains in this hospital. Addendum: 03/14/17 at 1442 by Shana Vasquez PT Amended: Links added.
[2017-03-14 12:46] VITALS: BP_SYST 149
--- NOTE | 2017-03-14 13:54 | NUR ---
Dr. Sauceda called back States patient is clear for discharge. sports betting manager Brigette frost.
--- NOTE | 2017-03-14 14:50 | NUR ---
DISCHARGE PLANNING IV Infusion Appointment Details: [facility] [address] [facility] [place] [address] Initial appointment scheduled 03/15 at 9:45AM Home Health Services Arrangement [facility] Home Health nurse will call patient to schedule to see patient on 03/15 after 11AM Medical Equipment Prescribed by Provider [facility] FWW scheduled to be delivered to patient home on 03/15 Colostomy Supplies scheduled to be delivered to patient home no later then Friday 03/16. DC Plan Comments Patient will be given Colostomy supplies prior to hospital discharge to allow time for supplies to be delivered to patient home.
--- NOTE | 2017-03-14 15:00 | NUR ---
Dr Oden rounds Last IV dose of antibiotics administered. Educates patient that he will be discharged with [facility].
--- NOTE | 2017-03-14 15:45 | NUR ---
Prescription Given from Dr Oden for [place]. Copy made and in chart. was called for pickle pumper.
[2017-03-14 15:52] VITALS: BP_SYST 133
[2017-03-14] MEDS ORDERED: HYDR-1189 PO (16:14)
--- NOTE | 2017-03-14 16:45 | NUR ---
at bedside. Discharge wound pictures taken. Wound cleansed and redressed. Supplies given: 5 ostomy bags, 4 packs of gauze, hydrogel, z gaurd, 5 tegaderms, 5 foam dressings, 2 graduated cylinders given to empty ostomy bag, and a bedside urinal.
--- NOTE | 2017-03-14 17:00 | NUR ---
D/C Patient Patient given medication reconciliation form and D/C instructions. Exit Care provided. Patient verbalized understanding. MD discussed with patient the results and treatment provided. Ambulatory with steady gait for discharge to home. Patient in stable condition, ID band removed.PICC line on left upper arm patent and dressing clean, dry and intact.Rx of [place] 5mg PO given. Patient educated on pain management. All belongings sent with patient. Patient left facility via wheelchair.
--- NOTE | 2017-03-16 14:03 | NUR ---
Discharge Follow Up Phone Call: Social Service Department placed call to pt ([phone]) on 03/15/17; pt stated that he needed a follow up appointment with Dr. Oden. CEMENT KILN OPERATOR placed call to Dr. Oden's office and confirmed that pt has a prescheduled appointment for March 29 at 8:45am. CEMENT KILN OPERATOR left a message for pt on 03/15/17 to alert pt the of previously scheduled appointment. CEMENT KILN OPERATOR placed additional call to pt today, 03/16/17 and left him a message to again confirm the appointment and check in to see if there were any questions/concerns. CEMENT KILN OPERATOR provided contact information for Social Service Department. CEMENT KILN OPERATOR will follow up as needs arise.
== END 2017-03-14 17:00 | disposition home health service (06) | DRG 329 ==
LOC: SED 08:52 → STU 10:02 → SMU 21:12 → STU 03-09 19:19 → SMU 03-13 12:17 → STU 03-13 17:09
PROVIDERS: ADMIT Specialist; ATTEND Specialist
PROC: 0D1N074 Bypass Sigmoid Colon to Cutaneous with Autologous Tissue Substitute, Open Approach (ICD-10-PCS; principal; 2017-03-09 13:00)
PROC: 02HV33Z Insertion of Infusion Device into Superior Vena Cava, Percutaneous Approach (ICD-10-PCS; 2017-03-13)
PROC: B548ZZA Ultrasonography of Superior Vena Cava, Guidance (ICD-10-PCS; 2017-03-13)
DX: K61.2 Anorectal abscess (principal); M72.6 Necrotizing fasciitis; K50.90 Crohn's disease, unspecified, without complications; I96 Gangrene, not elsewhere classified; K40.20 Bilateral inguinal hernia, without obstruction or gangrene, not specified as recurrent; E66.9 Obesity, unspecified; E78.2 Mixed hyperlipidemia; G47.33 Obstructive sleep apnea (adult) (pediatric); I10 Essential (primary) hypertension; D72.829 Elevated white blood cell count, unspecified; K62.89 Other specified diseases of anus and rectum; Z85.46 Personal history of malignant neoplasm of prostate; Z68.30 Body mass index [BMI] 30.0-30.9, adult; Z88.8 Allergy status to other drugs, medicaments and biological substances
CPT/HCPCS: 36415; 71010; 80053; 81003; 83605; 85025; 85610-TC; 85730-TC; 87040-TC; 87070-TC; 87075-TC; 87081; 87186-TC; 93005; 96365; 96375; 97110-GP; 97116-GP; 97530-GP; 99285; A5061; A6261; C1751; J0330; J1170; J2250; J2270; J2405; J2543; J2704; J2710; J3010; J3490; J7030; J7040; J7120; Q9964; Q9967

== ENCOUNTER 2017-04-03 10:56 | Day surgery (SDC) | payer BC ==
[~2017-04-03] VITALS: Ht 185.4 cm; Wt 93.9 kg
[~2017-04-03 10:56] MED LIST: HYDR-1189 PO; LIP80 PO; LOSA1TAB36 PO; METO50TA7 PO
[2017-04-03 12:07] LABS: BASOPHILS # (AUTO) 0.1 K/uL (0.0-0.2); BASOPHILS % (AUTO) 0.5 % (0.0-2.0); EOSINOPHILS # (AUTO) 0.4 K/uL (0.0-0.4); HEMATOCRIT 38.3 % (36-54); HEMOGLOBIN 12.6 g/dL (14.0-18.0); LYMPHOCYTES # (AUTO) 3.5 K/uL (1.0-5.5); LYMPHOCYTES % (AUTO) 29.1 % (20.5-51.5); MEAN CORPUSCULAR HEMOGLOBIN 31 pg (27-31); MEAN CORPUSCULAR HGB CONC 33 % (32-36); MEAN CORPUSCULAR VOLUME 93 fL (79.0-98.0); MONOCYTES # (AUTO) 0.5 K/uL (0.0-1.0); MONOCYTES % (AUTO) 4.1 % (1.7-9.3); NEUTROPHILS # (AUTO) 7.5 K/uL (1.8-7.7); NEUTROPHILS % (AUTO) 63.3 % (40.0-70.0); PLATELET COUNT (AUTO) 404 K/uL (130-430); RED BLOOD CELL COUNT(AUTO) 4.12 MIL/uL (4.2-6.2); RED CELL DISTRIBUTION WIDTH 14.4 % (9.0-15.0)
[2017-04-03 12:08] LABS: ALBUMIN 3.1 g/dL (3.4-4.8); CALCIUM 9.4 mg/dL (8.4-11.0); CREATININE 1.12 mg/dL (0.55-1.30); POTASSIUM 4.3 mmol/L (3.5-5.1); TOTAL BILIRUBIN 0.5 mg/dL (0.0-1.0)
[2017-04-03] MEDS ORDERED: LR 1,000 ML IV ONE (15:34)
[2017-04-03] MEDS ORDERED: fentaNYL CITRATE/PF 100 MCG/2 ML AMP IVP PRN (15:45)
[2017-04-03] MEDS ORDERED: NALOXONE HCL 0.4 MG/ML AMP (NARCAN) IVP PRN (15:45)
[2017-04-03] MEDS ORDERED: ONDANSETRON HCL 4 MG/2 ML VIAL IVP PRN ×2 (15:45)
[2017-04-03] MEDS ORDERED: NALBUPHINE HCL 10 MG/ML AMP IVP PRN (15:45)
[2017-04-03] MEDS ORDERED: ePHEDrine sulfate 50 MG/ML VIAL IVP PRN (15:45)
[2017-04-03] MEDS ORDERED: DIPHENHYDRAMINE INJ 50 MG/ML VIAL IVP PRN (15:45)
[2017-04-03 17:15] VITALS: BP_SYST 141
== END 2017-04-03 17:05 | disposition home or self-care (01) ==
LOC: SDS 10:56 → SMU 10:59 → EDSTATUS 14:00 → SDS 17:05
PROVIDERS: ATTEND Specialist
DX: K94.03 Colostomy malfunction (principal); I10 Essential (primary) hypertension; Z88.8 Allergy status to other drugs, medicaments and biological substances
CPT/HCPCS: 36415; 71045; 80053; 85025; 93005

== ENCOUNTER 2017-06-29 06:15 | Inpatient (IN) | payer BC ==
[2017-06-27 12:00] LABS: BASOPHILS # (AUTO) 0.1 K/uL (0.0-0.2); EOSINOPHILS # (AUTO) 0.3 K/uL (0.0-0.4); LYMPHOCYTES # (AUTO) 3.2 K/uL (1.0-5.5)
[2017-06-27 12:06] LABS: BASOPHILS % (AUTO) 0.6 % (0.0-2.0); EOSINOPHILS % (AUTO) 2.8 % (0.0-4.0); HEMATOCRIT 45.1 % (36-54); HEMOGLOBIN 14.9 g/dL (14.0-18.0); LYMPHOCYTES % (AUTO) 28.3 % (20.5-51.5); MEAN CORPUSCULAR HEMOGLOBIN 31 pg (27-31); MEAN CORPUSCULAR HGB CONC 33 % (32-36); MEAN CORPUSCULAR VOLUME 93 fL (79.0-98.0); MONOCYTES # (AUTO) 0.4 K/uL (0.0-1.0); MONOCYTES % (AUTO) 3.7 % (1.7-9.3); NEUTROPHILS # (AUTO) 7.2 K/uL (1.8-7.7); NEUTROPHILS % (AUTO) 64.6 % (40.0-70.0); PLATELET COUNT (AUTO) 269 K/uL (130-430); RED BLOOD CELL COUNT(AUTO) 4.87 MIL/uL (4.2-6.2); RED CELL DISTRIBUTION WIDTH 14.2 % (9.0-15.0); WHITE BLOOD COUNT (AUTO) 11.2 K/uL (4.8-10.8)
[2017-06-27 12:11] LABS: CALCIUM 9.6 mg/dL (8.4-11.0); CREATININE 0.98 mg/dL (0.55-1.30); POTASSIUM 3.6 mmol/L (3.5-5.1); TOTAL BILIRUBIN 0.6 mg/dL (0.0-1.0)
[2017-06-27 12:12] LABS: PROTHROMBIN TIME 9.9 SECS (9.5-12.5)
[~2017-06-29] VITALS: Ht 185.4 cm; Wt 99.8 kg
[~2017-06-29 06:15] MED LIST changes: +LIP40 PO; +PEN250 PO
[2017-06-29] MEDS ORDERED: metroNIDAZOLE 500 mg/NS 100 mL IVPB IV ONE (09:01)
[2017-06-29] MEDS ORDERED: LIDOCAINE 1% 10 MG/ML, 20 ML MDV INJ ONE (09:01)
[2017-06-29] MEDS ORDERED: MIDAZOLAM HCL 5 MG/5 ML VIAL IVP ONE (09:01)
[2017-06-29] MEDS ORDERED: PIPERACILLIN/TAZOBACTAM 3.375 GM/DEX-IS 50 ML PIGGYBACK IV ONE (09:01)
[2017-06-29] MEDS ORDERED: NEOSTIGMINE METHYLSULFATE 1 MG/ML, 10 ML VIAL IVP ONE (09:01)
[2017-06-29] MEDS ORDERED: GLYCOPYRROLATE 0.2 MG/ML VIAL IJ ONE (09:01)
[2017-06-29] MEDS ORDERED: ONDANSETRON HCL 4 MG/2 ML VIAL IVP ONE ×2 (09:01→10:30)
[2017-06-29] MEDS ORDERED: ROCURONIUM BROMIDE 10 MG/ML (ZEMURON) IV ONE (09:01)
[2017-06-29] MEDS ORDERED: LR 1,000 ML IV.SOLN IV ONE (09:01)
[2017-06-29] MEDS ORDERED: KETOROLAC TROMETHAMINE 30 MG VIAL IVP ONE ×2 (09:01→10:30)
[2017-06-29] MEDS ORDERED: MEPERIDINE HCL/PF 100 MG/ML AMP IM ONE (09:01)
[2017-06-29] MEDS ORDERED: SEVOFLURANE 15 MIN GAS INH ONE (09:01)
[2017-06-29] MEDS ORDERED: PROPOFOL 200MG/ 20ML VIAL (DIPRIVAN) IV ONE (09:01)
[2017-06-29] MEDS ORDERED: DEXAMETHASONE SOD PHOSPHATE 4 MG/ML VIAL IVP ONE (09:01)
[2017-06-29] MEDS ORDERED: fentaNYL CITRATE 250 MCG/5 ML AMP IV ONE (09:01)
[2017-06-29] MEDS ORDERED: SUCCINYLCHOLINE CHLORIDE 20 MG/ML(QUELICIN) IVP ONE (09:01)
[2017-06-29] MEDS ORDERED: POLYMYXIN 500,000/BACIT.10,000 UNITS in NS IRR 1 L IR ONE (09:05)
[2017-06-29] MEDS ORDERED: MIDAZOLAM HCL 5 MG/5 ML VIAL IVP PRN (10:30)
[2017-06-29] MEDS ORDERED: MEPERIDINE HCL/PF 25 MG/ML DISP.SYRIN IVP PRN (10:30)
[2017-06-29] MEDS ORDERED: NALOXONE HCL 0.4 MG/ML AMP (NARCAN) IVP ONE (10:30)
[2017-06-29] MEDS ORDERED: HYDROmorphone 1 MG INJ. 1 MG/ML AMPUL IVP PRN (10:30)
[2017-06-29] MEDS ORDERED: fentaNYL CITRATE/PF 100 MCG/2 ML AMP IVP PRN (10:30)
[2017-06-29] MEDS ORDERED: MEPERIDINE HCL/PF 50 MG/ML AMP ONE (11:21)
[2017-06-29] MEDS ORDERED: KETOROLAC TROMETHAMINE 30 MG VIAL ONE (11:42)
[2017-06-29] MEDS ORDERED: fentaNYL CITRATE/PF 100 MCG/2 ML AMP ONE (12:00)
[2017-06-29] MEDS ORDERED: MIDAZOLAM HCL 2 MG/2 ML VIAL (VERSED) ONE (12:13)
[2017-06-29 13:01] VITALS: BP_SYST 130
[2017-06-29] MEDS ORDERED: MORPHINE 4 MG/ML INJ. SYRINGE IVP PRN (14:00)
[2017-06-29] MEDS: D5NS 1,000 ML IV SCH (15:16)
[2017-06-29] MEDS: metroNIDAZOLE 500 mg/NS 100 ML IV SCH ×2 (15:17→21:33)
[2017-06-29] MEDS: PIPERACILLIN/TAZO 4.5GM/DEX-IS 100 ML IV SCH ×2 (16:19→21:33)
[2017-06-29 16:22] VITALS: BP_SYST 130
[2017-06-29] MEDS ORDERED: cloNIDine HCL 0.1 MG TABLET PO PRN (19:30)
[2017-06-29] MEDS ORDERED: NON-FORMULARY MEDICATION (Losartan/Hctz* (Losartan-Hctz 100-12.5 Mg Tab*) 1 EACH) PO SCH (19:45)
[2017-06-29] MEDS: MORPHINE 4 MG/ML INJ. SYRINGE IVP PRN (20:29)
[2017-06-29 20:40] VITALS: BP_SYST 114
[2017-06-29 23:46] VITALS: BP_SYST 117
[2017-06-30] MEDS: MORPHINE 4 MG/ML INJ. SYRINGE IVP PRN ×2 (00:31→04:36)
[2017-06-30] MEDS: D5NS 1,000 ML IV SCH ×3 (03:13→21:14)
[2017-06-30] MEDS: metroNIDAZOLE 500 mg/NS 100 ML IV SCH ×3 (06:08→21:14)
[2017-06-30] MEDS: PIPERACILLIN/TAZO 4.5GM/DEX-IS 100 ML IV SCH ×3 (06:08→21:13)
[2017-06-30 08:15] VITALS: BP_SYST 114
[2017-06-30] MEDS: LOSARTAN POTASSIUM 50 MG TABLET (COZAAR) PO SCH (08:50)
[2017-06-30] MEDS: ATORVASTATIN 20 MG TABLET PO SCH (08:51)
[2017-06-30] MEDS: HYDROCHLOROTHIAZIDE 12.5 MG CAPSULE (HCTZ) PO SCH (08:51)
[2017-06-30] MEDS: METOPROLOL SUCCINATE 50 MG TAB.SR.24H (TOPROL XL) PO SCH (08:51)
[2017-06-30] MEDS: MORPHINE SULFATE 10 MG/ML VIAL IVP PRN ×4 (08:52→21:15)
[2017-06-30 08:58] LABS: POTASSIUM 3.9 mmol/L (3.5-5.1)
[2017-06-30 08:59] LABS: ALBUMIN 2.8 g/dL (3.4-4.8); CALCIUM 8.5 mg/dL (8.4-11.0); CREATININE 1.21 mg/dL (0.55-1.30); TOTAL BILIRUBIN 0.6 mg/dL (0.0-1.0)
[2017-06-30 09:26] LABS: BASOPHILS # (AUTO) 0.1 K/uL (0.0-0.2); BASOPHILS % (AUTO) 0.5 % (0.0-2.0); EOSINOPHILS # (AUTO) 0.7 K/uL (0.0-0.4); EOSINOPHILS % (AUTO) 5.5 % (0.0-4.0); HEMATOCRIT 37.3 % (36-54); HEMOGLOBIN 12.8 g/dL (14.0-18.0); LYMPHOCYTES # (AUTO) 1.9 K/uL (1.0-5.5); MEAN CORPUSCULAR HEMOGLOBIN 32 pg (27-31); MEAN CORPUSCULAR HGB CONC 34 % (32-36); MEAN CORPUSCULAR VOLUME 94 fL (79.0-98.0); MONOCYTES # (AUTO) 0.6 K/uL (0.0-1.0); MONOCYTES % (AUTO) 4.4 % (1.7-9.3); NEUTROPHILS # (AUTO) 9.9 K/uL (1.8-7.7); NEUTROPHILS % (AUTO) 75.6 % (40.0-70.0); PLATELET COUNT (AUTO) 231 K/uL (130-430); RED BLOOD CELL COUNT(AUTO) 3.98 MIL/uL (4.2-6.2); RED CELL DISTRIBUTION WIDTH 14.5 % (9.0-15.0); WHITE BLOOD COUNT (AUTO) 13.2 K/uL (4.8-10.8)
[2017-06-30] MEDS: MESALAMINE 250 MG CAPSULE.SA PO SCH ×2 (10:14→21:14)
[2017-06-30 12:23] VITALS: BP_SYST 117
[2017-06-30 12:53] VITALS: BP_SYST 127
[2017-06-30 16:00] VITALS: BP_SYST 123
[2017-06-30] MEDS: HYDROcodone/ACETAMIN 5-325 MG TAB (NORCO/ VICODIN) PO PRN (17:35)
[2017-06-30 20:41] VITALS: BP_SYST 132
[2017-07-01] VITALS: BP_SYST 135
[2017-07-01] MEDS: MORPHINE SULFATE 10 MG/ML VIAL IVP PRN ×6 (01:14→21:31)
[2017-07-01] MEDS: metroNIDAZOLE 500 mg/NS 100 ML IV SCH ×3 (05:15→22:50)
[2017-07-01] MEDS: PIPERACILLIN/TAZO 4.5GM/DEX-IS 100 ML IV SCH ×3 (05:15→21:31)
[2017-07-01] MEDS: D5NS 1,000 ML IV SCH ×2 (05:15→16:15)
[2017-07-01 07:31] LABS: BASOPHILS # (AUTO) 0.1 K/uL (0.0-0.2); BASOPHILS % (AUTO) 0.5 % (0.0-2.0); EOSINOPHILS # (AUTO) 0.7 K/uL (0.0-0.4); EOSINOPHILS % (AUTO) 5.9 % (0.0-4.0); HEMATOCRIT 36.5 % (36-54); HEMOGLOBIN 12.8 g/dL (14.0-18.0); LYMPHOCYTES # (AUTO) 1.8 K/uL (1.0-5.5); LYMPHOCYTES % (AUTO) 14.5 % (20.5-51.5); MEAN CORPUSCULAR HEMOGLOBIN 32 pg (27-31); MEAN CORPUSCULAR HGB CONC 35 % (32-36); MEAN CORPUSCULAR VOLUME 93 fL (79.0-98.0); MONOCYTES # (AUTO) 0.6 K/uL (0.0-1.0); MONOCYTES % (AUTO) 4.7 % (1.7-9.3); NEUTROPHILS # (AUTO) 9.4 K/uL (1.8-7.7); NEUTROPHILS % (AUTO) 74.4 % (40.0-70.0); PLATELET COUNT (AUTO) 210 K/uL (130-430); RED BLOOD CELL COUNT(AUTO) 3.94 MIL/uL (4.2-6.2); RED CELL DISTRIBUTION WIDTH 14.1 % (9.0-15.0); WHITE BLOOD COUNT (AUTO) 12.6 K/uL (4.8-10.8)
[2017-07-01 07:40] LABS: ALBUMIN 2.7 g/dL (3.4-4.8); CALCIUM 8.6 mg/dL (8.4-11.0); CREATININE 1.22 mg/dL (0.55-1.30); PHOSPHORUS 3.6 mg/dL (2.7-4.5); POTASSIUM 3.7 mmol/L (3.5-5.1); TOTAL BILIRUBIN 0.6 mg/dL (0.0-1.0)
[2017-07-01 07:50] VITALS: BP_SYST 129
[2017-07-01] MEDS: ATORVASTATIN 20 MG TABLET PO SCH (09:21)
[2017-07-01] MEDS: HYDROCHLOROTHIAZIDE 12.5 MG CAPSULE (HCTZ) PO SCH (09:22)
[2017-07-01] MEDS: METOPROLOL SUCCINATE 50 MG TAB.SR.24H (TOPROL XL) PO SCH (09:22)
[2017-07-01] MEDS: LOSARTAN POTASSIUM 50 MG TABLET (COZAAR) PO SCH (09:23)
[2017-07-01] MEDS: MESALAMINE 250 MG CAPSULE.SA PO SCH ×2 (09:25→21:30)
[2017-07-01 12:06] VITALS: BP_SYST 132
[2017-07-01 16:00] VITALS: BP_SYST 133
[2017-07-01 20:00] VITALS: BP_SYST 144
[2017-07-02] VITALS: BP_SYST 133
[2017-07-02] MEDS: MORPHINE SULFATE 10 MG/ML VIAL IVP PRN ×4 (01:57→20:56)
[2017-07-02] MEDS: D5NS 1,000 ML IV SCH ×2 (04:24→18:22)
[2017-07-02] MEDS: PIPERACILLIN/TAZO 4.5GM/DEX-IS 100 ML IV SCH ×3 (05:21→22:32)
[2017-07-02] MEDS: metroNIDAZOLE 500 mg/NS 100 ML IV SCH ×3 (06:43→21:05)
[2017-07-02 07:21] LABS: ALBUMIN 2.9 g/dL (3.4-4.8); CREATININE 1.12 mg/dL (0.55-1.30); PHOSPHORUS 3.9 mg/dL (2.7-4.5); POTASSIUM 3.8 mmol/L (3.5-5.1); TOTAL BILIRUBIN 0.6 mg/dL (0.0-1.0)
[2017-07-02 07:48] LABS: BASOPHILS % (AUTO) 0.3 % (0.0-2.0); EOSINOPHILS # (AUTO) 0.8 K/uL (0.0-0.4); EOSINOPHILS % (AUTO) 7.1 % (0.0-4.0); HEMATOCRIT 40.5 % (36-54); HEMOGLOBIN 13.6 g/dL (14.0-18.0); LYMPHOCYTES # (AUTO) 2.3 K/uL (1.0-5.5); LYMPHOCYTES % (AUTO) 19.8 % (20.5-51.5); MEAN CORPUSCULAR HEMOGLOBIN 32 pg (27-31); MEAN CORPUSCULAR HGB CONC 34 % (32-36); MEAN CORPUSCULAR VOLUME 94 fL (79.0-98.0); MONOCYTES # (AUTO) 0.6 K/uL (0.0-1.0); MONOCYTES % (AUTO) 4.8 % (1.7-9.3); NEUTROPHILS # (AUTO) 7.9 K/uL (1.8-7.7); PLATELET COUNT (AUTO) 244 K/uL (130-430); RED BLOOD CELL COUNT(AUTO) 4.31 MIL/uL (4.2-6.2); RED CELL DISTRIBUTION WIDTH 13.8 % (9.0-15.0); WHITE BLOOD COUNT (AUTO) 11.6 K/uL (4.8-10.8)
[2017-07-02 08:00] VITALS: BP_SYST 120
[2017-07-02] MEDS: ATORVASTATIN 20 MG TABLET PO SCH (09:41)
[2017-07-02] MEDS: LOSARTAN POTASSIUM 50 MG TABLET (COZAAR) PO SCH (09:42)
[2017-07-02] MEDS: METOPROLOL SUCCINATE 50 MG TAB.SR.24H (TOPROL XL) PO SCH (09:42)
[2017-07-02] MEDS: MESALAMINE 250 MG CAPSULE.SA PO SCH ×2 (09:43→20:54)
[2017-07-02] MEDS: HYDROCHLOROTHIAZIDE 12.5 MG CAPSULE (HCTZ) PO SCH (09:43)
[2017-07-02] MEDS: HYDROcodone/ACETAMIN 5-325 MG TAB (NORCO/ VICODIN) PO PRN (09:47)
[2017-07-02 12:35] VITALS: BP_SYST 143
[2017-07-02] MEDS: LORazepam 2 MG/ML VIAL IM PRN (13:56)
[2017-07-02 16:42] VITALS: BP_SYST 145
[2017-07-02] MEDS: METOCLOPRAMIDE HCL 10 MG/2 ML VIAL IVP SCH (18:22)
[2017-07-02] MEDS ORDERED: BISACODYL 10 MG/SUPPOSITORY RC ONE (19:15)
[2017-07-02 20:00] VITALS: BP_SYST 135
[2017-07-03] MEDS ORDERED: MORPHINE 4 MG/ML INJ. SYRINGE IVP ONE (00:15)
[2017-07-03] MEDS: LORazepam 2 MG/ML VIAL IM PRN (00:24)
[2017-07-03] MEDS: METOCLOPRAMIDE HCL 10 MG/2 ML VIAL IVP SCH ×4 (00:30→17:50)
[2017-07-03 00:39] VITALS: BP_SYST 138
[2017-07-03] MEDS: D5NS 1,000 ML IV SCH ×3 (04:13→18:47)
[2017-07-03] MEDS: PIPERACILLIN/TAZO 4.5GM/DEX-IS 100 ML IV SCH ×2 (05:05→14:44)
[2017-07-03] MEDS: metroNIDAZOLE 500 mg/NS 100 ML IV SCH ×3 (06:13→22:21)
[2017-07-03 06:50] LABS: BASOPHILS # (AUTO) 0.1 K/uL (0.0-0.2); BASOPHILS % (AUTO) 0.7 % (0.0-2.0); EOSINOPHILS % (AUTO) 0.3 % (0.0-4.0); HEMATOCRIT 45.1 % (36-54); HEMOGLOBIN 14.9 g/dL (14.0-18.0); LYMPHOCYTES # (AUTO) 0.9 K/uL (1.0-5.5); LYMPHOCYTES % (AUTO) 6.3 % (20.5-51.5); MEAN CORPUSCULAR HEMOGLOBIN 31 pg (27-31); MEAN CORPUSCULAR HGB CONC 33 % (32-36); MEAN CORPUSCULAR VOLUME 94 fL (79.0-98.0); MONOCYTES # (AUTO) 0.7 K/uL (0.0-1.0); MONOCYTES % (AUTO) 4.6 % (1.7-9.3); NEUTROPHILS # (AUTO) 12.5 K/uL (1.8-7.7); NEUTROPHILS % (AUTO) 88.1 % (40.0-70.0); PLATELET COUNT (AUTO) 298 K/uL (130-430); RED BLOOD CELL COUNT(AUTO) 4.82 MIL/uL (4.2-6.2); RED CELL DISTRIBUTION WIDTH 13.3 % (9.0-15.0)
[2017-07-03 06:58] LABS: WHITE BLOOD COUNT (AUTO) 14.2 K/uL (4.8-10.8)
[2017-07-03 07:03] LABS: ALBUMIN 2.8 g/dL (3.4-4.8); CALCIUM 9.1 mg/dL (8.4-11.0); CREATININE 1.4 mg/dL (0.55-1.30); TOTAL BILIRUBIN 0.8 mg/dL (0.0-1.0)
[2017-07-03 07:32] LABS: POTASSIUM 2.7 mmol/L (3.5-5.1)
[2017-07-03 08:00] VITALS: BP_SYST 137
[2017-07-03] MEDS ORDERED: POTASSIUM CHLORIDE 40 MEQ in NS 250 ML IV ONE (08:00)
[2017-07-03] MEDS: METOPROLOL SUCCINATE 50 MG TAB.SR.24H (TOPROL XL) PO SCH (09:00)
[2017-07-03] MEDS ORDERED: BISACODYL 10 MG/SUPPOSITORY RC PRN (09:00)
[2017-07-03] MEDS: LOSARTAN POTASSIUM 50 MG TABLET (COZAAR) PO SCH (09:00)
[2017-07-03] MEDS: MESALAMINE 250 MG CAPSULE.SA PO SCH ×2 (09:00→22:19)
[2017-07-03] MEDS: HYDROCHLOROTHIAZIDE 12.5 MG CAPSULE (HCTZ) PO SCH (09:00)
[2017-07-03] MEDS: ATORVASTATIN 20 MG TABLET PO SCH (09:00)
[2017-07-03] MEDS: ONDANSETRON HCL 4 MG/2 ML VIAL IVP PRN ×2 (10:39→22:15)
[2017-07-03 12:16] VITALS: BP_SYST 148
[2017-07-03 16:24] VITALS: BP_SYST 137
[2017-07-03 17:47] VITALS: BP_SYST 137
[2017-07-03] MEDS ORDERED: POTASSIUM CHLORIDE 20 MEQ TAB.PRT.SR PO ONE (19:15)
[2017-07-03 20:00] VITALS: BP_SYST 133
[2017-07-03] MEDS: D5LR 1,000 ML IV SCH (20:16)
[2017-07-03] MEDS: POTASSIUM CHLORIDE 20 MEQ TAB.PRT.SR PO SCH (22:11)
[2017-07-03] MEDS: PIPERACILLIN/TAZO 3.375/DEX-IS 50 ML IV SCH (22:20)
[2017-07-04 00:08] VITALS: BP_SYST 155
[2017-07-04] MEDS ORDERED: METOCLOPRAMIDE HCL 10 MG/2 ML VIAL ONE (00:33)
[2017-07-04] MEDS: METOCLOPRAMIDE HCL 10 MG/2 ML VIAL IVP SCH ×4 (00:52→17:07)
[2017-07-04] MEDS: ONDANSETRON HCL 4 MG/2 ML VIAL IVP PRN ×2 (03:50→22:35)
[2017-07-04] MEDS: MORPHINE SULFATE 10 MG/ML VIAL IVP PRN ×4 (03:50→22:35)
[2017-07-04] MEDS: D5LR 1,000 ML IV SCH ×3 (06:23→22:15)
[2017-07-04] MEDS: metroNIDAZOLE 500 mg/NS 100 ML IV SCH ×3 (06:24→22:36)
[2017-07-04] MEDS: PIPERACILLIN/TAZO 3.375/DEX-IS 50 ML IV SCH ×3 (06:25→22:34)
[2017-07-04 06:31] LABS: BASOPHILS # (AUTO) 0.1 K/uL (0.0-0.2); BASOPHILS % (AUTO) 0.7 % (0.0-2.0); EOSINOPHILS % (AUTO) 0.2 % (0.0-4.0); HEMATOCRIT 43.7 % (36-54); HEMOGLOBIN 14.4 g/dL (14.0-18.0); LYMPHOCYTES # (AUTO) 1.3 K/uL (1.0-5.5); LYMPHOCYTES % (AUTO) 7.3 % (20.5-51.5); MEAN CORPUSCULAR HEMOGLOBIN 31 pg (27-31); MEAN CORPUSCULAR HGB CONC 33 % (32-36); MEAN CORPUSCULAR VOLUME 94 fL (79.0-98.0); MONOCYTES # (AUTO) 0.8 K/uL (0.0-1.0); MONOCYTES % (AUTO) 4.5 % (1.7-9.3); NEUTROPHILS # (AUTO) 15.4 K/uL (1.8-7.7); NEUTROPHILS % (AUTO) 87.3 % (40.0-70.0); PLATELET COUNT (AUTO) 317 K/uL (130-430); RED BLOOD CELL COUNT(AUTO) 4.64 MIL/uL (4.2-6.2); RED CELL DISTRIBUTION WIDTH 13.7 % (9.0-15.0); WHITE BLOOD COUNT (AUTO) 17.6 K/uL (4.8-10.8)
[2017-07-04 07:00] LABS: ALBUMIN 2.8 g/dL (3.4-4.8); CALCIUM 9.4 mg/dL (8.4-11.0); CREATININE 1.63 mg/dL (0.55-1.30); POTASSIUM 3.1 mmol/L (3.5-5.1); TOTAL BILIRUBIN 0.5 mg/dL (0.0-1.0)
[2017-07-04 08:36] VITALS: BP_SYST 139
[2017-07-04] MEDS: ATORVASTATIN 20 MG TABLET PO SCH (10:12)
[2017-07-04] MEDS: LOSARTAN POTASSIUM 50 MG TABLET (COZAAR) PO SCH (10:12)
[2017-07-04] MEDS: POTASSIUM CHLORIDE 20 MEQ TAB.PRT.SR PO SCH ×2 (10:12→22:36)
[2017-07-04] MEDS: METOPROLOL SUCCINATE 50 MG TAB.SR.24H (TOPROL XL) PO SCH (10:13)
[2017-07-04] MEDS: HYDROCHLOROTHIAZIDE 12.5 MG CAPSULE (HCTZ) PO SCH (10:13)
[2017-07-04] MEDS: MESALAMINE 250 MG CAPSULE.SA PO SCH ×2 (10:14→22:36)
[2017-07-04 12:18] VITALS: BP_SYST 149
[2017-07-04] MEDS: BISACODYL 10 MG/SUPPOSITORY RC PRN (13:09)
[2017-07-04 16:12] VITALS: BP_SYST 137
[2017-07-04] MEDS ORDERED: cloNIDine HCL 0.1 MG TABLET PO PRN (17:00)
[2017-07-04] MEDS ORDERED: METOCLOPRAMIDE HCL 10 MG/2 ML VIAL IVP PRN (17:00)
[2017-07-04] MEDS ORDERED: POTASSIUM CHLORIDE 40 MEQ, LIDOCAINE JECT 2% PF 100 MG 50 MG in NS 250 ML IV ONE (17:00)
[2017-07-04] MEDS ORDERED: PANTOPRAZOLE SODIUM 40 MG/VIAL (PROTONIX) IVP ONE (17:00)
[2017-07-04 17:43] LABS: CALCIUM 9.2 mg/dL (8.4-11.0); CREATININE 1.42 mg/dL (0.55-1.30); POTASSIUM 3.2 mmol/L (3.5-5.1)
[2017-07-04 19:55] VITALS: BP_SYST 144
[2017-07-05 01:05] VITALS: BP_SYST 124
[2017-07-05] MEDS: MORPHINE SULFATE 10 MG/ML VIAL IVP PRN ×4 (02:38→23:02)
[2017-07-05] MEDS: D5LR 1,000 ML IV SCH ×2 (04:55→13:32)
[2017-07-05 05:56] LABS: ALBUMIN 2.4 g/dL (3.4-4.8); CALCIUM 8.8 mg/dL (8.4-11.0); CREATININE 1.09 mg/dL (0.55-1.30); PHOSPHORUS 2.7 mg/dL (2.7-4.5); POTASSIUM 3.6 mmol/L (3.5-5.1); TOTAL BILIRUBIN 0.3 mg/dL (0.0-1.0)
[2017-07-05 05:57] LABS: BASOPHILS # (AUTO) 0.2 K/uL (0.0-0.2); BASOPHILS % (AUTO) 1.1 % (0.0-2.0); EOSINOPHILS # (AUTO) 0.6 K/uL (0.0-0.4); EOSINOPHILS % (AUTO) 3.6 % (0.0-4.0); HEMATOCRIT 38.9 % (36-54); HEMOGLOBIN 13.3 g/dL (14.0-18.0); LYMPHOCYTES # (AUTO) 1.9 K/uL (1.0-5.5); LYMPHOCYTES % (AUTO) 11.2 % (20.5-51.5); MEAN CORPUSCULAR HEMOGLOBIN 32 pg (27-31); MEAN CORPUSCULAR HGB CONC 34 % (32-36); MEAN CORPUSCULAR VOLUME 95 fL (79.0-98.0); MONOCYTES # (AUTO) 0.7 K/uL (0.0-1.0); MONOCYTES % (AUTO) 3.8 % (1.7-9.3); NEUTROPHILS # (AUTO) 13.9 K/uL (1.8-7.7); NEUTROPHILS % (AUTO) 80.3 % (40.0-70.0); PLATELET COUNT (AUTO) 296 K/uL (130-430); RED BLOOD CELL COUNT(AUTO) 4.11 MIL/uL (4.2-6.2); RED CELL DISTRIBUTION WIDTH 13.6 % (9.0-15.0); WHITE BLOOD COUNT (AUTO) 17.3 K/uL (4.8-10.8)
[2017-07-05] MEDS: PIPERACILLIN/TAZO 3.375/DEX-IS 50 ML IV SCH ×3 (06:04→20:31)
[2017-07-05] MEDS: metroNIDAZOLE 500 mg/NS 100 ML IV SCH ×3 (06:04→20:30)
[2017-07-05] MEDS: ONDANSETRON HCL 4 MG/2 ML VIAL IVP PRN ×2 (06:20→23:03)
[2017-07-05] MEDS: HYDROcodone/ACETAMIN 5-325 MG TAB (NORCO/ VICODIN) PO PRN (06:20)
[2017-07-05 08:00] VITALS: BP_SYST 144
[2017-07-05] MEDS: POTASSIUM CHLORIDE 20 MEQ TAB.PRT.SR PO SCH ×2 (09:34→20:29)
[2017-07-05] MEDS: METOPROLOL SUCCINATE 50 MG TAB.SR.24H (TOPROL XL) PO SCH (09:34)
[2017-07-05] MEDS: ATORVASTATIN 20 MG TABLET PO SCH (09:35)
[2017-07-05] MEDS: MESALAMINE 250 MG CAPSULE.SA PO SCH ×2 (09:35→20:30)
[2017-07-05] MEDS: PANTOPRAZOLE SODIUM 40 MG/VIAL (PROTONIX) IVP SCH (09:35)
[2017-07-05] MEDS ORDERED: METOCLOPRAMIDE HCL 10 MG/2 ML VIAL IVP ONE (12:15)
[2017-07-05] MEDS: BISACODYL 10 MG/SUPPOSITORY RC PRN (12:15)
[2017-07-05 12:45] VITALS: BP_SYST 153
[2017-07-05] MEDS: FLUCONAZOLE 200 mg/ NS 100 ML IV SCH (15:23)
[2017-07-05 16:32] VITALS: BP_SYST 139
[2017-07-05 19:50] VITALS: BP_SYST 152
[2017-07-05 23:20] VITALS: BP_SYST 143
[2017-07-06] MEDS: D5LR 1,000 ML IV SCH ×2 (00:55→10:52)
[2017-07-06] MEDS: ONDANSETRON HCL 4 MG/2 ML VIAL IVP PRN (04:11)
[2017-07-06] MEDS: MORPHINE SULFATE 10 MG/ML VIAL IVP PRN ×5 (04:12→22:49)
[2017-07-06 06:20] LABS: BASOPHILS # (AUTO) 0.1 K/uL (0.0-0.2); BASOPHILS % (AUTO) 0.6 % (0.0-2.0); EOSINOPHILS # (AUTO) 0.6 K/uL (0.0-0.4); EOSINOPHILS % (AUTO) 4.2 % (0.0-4.0); HEMOGLOBIN 13.4 g/dL (14.0-18.0); LYMPHOCYTES % (AUTO) 14.6 % (20.5-51.5); MEAN CORPUSCULAR HEMOGLOBIN 31 pg (27-31); MEAN CORPUSCULAR HGB CONC 33 % (32-36); MEAN CORPUSCULAR VOLUME 95 fL (79.0-98.0); MONOCYTES # (AUTO) 0.6 K/uL (0.0-1.0); MONOCYTES % (AUTO) 4.4 % (1.7-9.3); NEUTROPHILS # (AUTO) 10.7 K/uL (1.8-7.7); NEUTROPHILS % (AUTO) 76.2 % (40.0-70.0); PLATELET COUNT (AUTO) 343 K/uL (130-430); RED CELL DISTRIBUTION WIDTH 13.7 % (9.0-15.0)
[2017-07-06] MEDS: metroNIDAZOLE 500 mg/NS 100 ML IV SCH ×3 (06:30→21:42)
[2017-07-06] MEDS: PIPERACILLIN/TAZO 3.375/DEX-IS 50 ML IV SCH ×3 (06:31→21:43)
[2017-07-06 06:55] LABS: ALBUMIN 2.5 g/dL (3.4-4.8); CALCIUM 8.9 mg/dL (8.4-11.0); CREATININE 1.03 mg/dL (0.55-1.30); POTASSIUM 3.6 mmol/L (3.5-5.1); TOTAL BILIRUBIN 0.4 mg/dL (0.0-1.0)
[2017-07-06 08:00] VITALS: BP_SYST 140
[2017-07-06] MEDS: POTASSIUM CHLORIDE 20 MEQ TAB.PRT.SR PO SCH ×2 (09:30→21:40)
[2017-07-06] MEDS: METOPROLOL SUCCINATE 50 MG TAB.SR.24H (TOPROL XL) PO SCH (09:31)
[2017-07-06] MEDS: ATORVASTATIN 20 MG TABLET PO SCH (09:31)
[2017-07-06] MEDS: MESALAMINE 250 MG CAPSULE.SA PO SCH ×2 (09:33→21:41)
[2017-07-06] MEDS: PANTOPRAZOLE SODIUM 40 MG/VIAL (PROTONIX) IVP SCH (09:33)
[2017-07-06 12:57] VITALS: BP_SYST 149
[2017-07-06] MEDS: FLUCONAZOLE 200 mg/ NS 100 ML IV SCH (13:00)
[2017-07-06 16:48] VITALS: BP_SYST 147
[2017-07-06 19:00] VITALS: BP_SYST 143
[2017-07-06 20:00] VITALS: BP_SYST 143
[2017-07-07 00:15] VITALS: BP_SYST 140
[2017-07-07] MEDS: MORPHINE SULFATE 10 MG/ML VIAL IVP PRN (03:10)
[2017-07-07] MEDS: D5LR 1,000 ML IV SCH ×2 (03:14→07:39)
[2017-07-07] MEDS: metroNIDAZOLE 500 mg/NS 100 ML IV SCH (05:23)
[2017-07-07 06:22] LABS: BASOPHILS # (AUTO) 0.1 K/uL (0.0-0.2); BASOPHILS % (AUTO) 0.6 % (0.0-2.0); EOSINOPHILS # (AUTO) 0.9 K/uL (0.0-0.4); EOSINOPHILS % (AUTO) 6.4 % (0.0-4.0); HEMATOCRIT 37.1 % (36-54); HEMOGLOBIN 12.7 g/dL (14.0-18.0); LYMPHOCYTES # (AUTO) 2.3 K/uL (1.0-5.5); MEAN CORPUSCULAR HEMOGLOBIN 32 pg (27-31); MEAN CORPUSCULAR HGB CONC 34 % (32-36); MONOCYTES # (AUTO) 0.7 K/uL (0.0-1.0); MONOCYTES % (AUTO) 5.6 % (1.7-9.3); NEUTROPHILS # (AUTO) 9.3 K/uL (1.8-7.7); NEUTROPHILS % (AUTO) 70.4 % (40.0-70.0); PLATELET COUNT (AUTO) 297 K/uL (130-430); RED BLOOD CELL COUNT(AUTO) 3.98 MIL/uL (4.2-6.2); RED CELL DISTRIBUTION WIDTH 13.3 % (9.0-15.0); WHITE BLOOD COUNT (AUTO) 13.3 K/uL (4.8-10.8)
[2017-07-07 06:44] LABS: ALBUMIN 2.3 g/dL (3.4-4.8); CALCIUM 8.7 mg/dL (8.4-11.0); CREATININE 0.9 mg/dL (0.55-1.30); POTASSIUM 3.7 mmol/L (3.5-5.1); TOTAL BILIRUBIN 0.4 mg/dL (0.0-1.0)
[2017-07-07] MEDS: HYDROcodone/ACETAMIN 5-325 MG TAB (NORCO/ VICODIN) PO PRN (06:48)
[2017-07-07] MEDS: PIPERACILLIN/TAZO 3.375/DEX-IS 50 ML IV SCH (06:50)
[2017-07-07 07:03] LABS: MEAN CORPUSCULAR VOLUME 93 fL (79.0-98.0)
[2017-07-07 08:30] VITALS: BP_SYST 137
[2017-07-07] MEDS: POTASSIUM CHLORIDE 20 MEQ TAB.PRT.SR PO SCH (08:33)
[2017-07-07] MEDS: METOPROLOL SUCCINATE 50 MG TAB.SR.24H (TOPROL XL) PO SCH (08:34)
[2017-07-07] MEDS: MESALAMINE 250 MG CAPSULE.SA PO SCH (08:34)
[2017-07-07] MEDS: ATORVASTATIN 20 MG TABLET PO SCH (08:34)
[2017-07-07] MEDS: PANTOPRAZOLE SODIUM 40 MG/VIAL (PROTONIX) IVP SCH (08:35)
[2017-07-07 12:08] VITALS: BP_SYST 150
[2017-07-07] MEDS ORDERED: METO-290 PO (12:15)
[2017-07-07] MEDS ORDERED: LEVO750T45 PO (12:16)
[2017-07-07] MEDS ORDERED: HYDR-4100 PO (12:16)
[2017-07-07] MEDS ORDERED: FLA250 PO (12:16)
[2017-07-07] MEDS ORDERED: L.RH1CAP PO (12:17)
[2017-07-07 12:24] VITALS: BP_SYST 150
== END 2017-07-07 13:00 | disposition home health service (06) | DRG 329 ==
LOC: SMU 06:15
PROVIDERS: ADMIT Specialist; ATTEND Specialist
PROC: 0WQF0ZZ Repair Abdominal Wall, Open Approach (ICD-10-PCS; 2017-06-29)
PROC: 0YQ60ZZ Repair Left Inguinal Region, Open Approach (ICD-10-PCS; 2017-06-29)
PROC: 0DQM0ZZ Repair Descending Colon, Open Approach (ICD-10-PCS; 2017-06-29)
PROC: 0DTJ0ZZ Resection of Appendix, Open Approach (ICD-10-PCS; 2017-06-29)
PROC: 0DBM0ZZ Excision of Descending Colon, Open Approach (ICD-10-PCS; 2017-06-29)
PROC: 0DBB0ZZ Excision of Ileum, Open Approach (ICD-10-PCS; principal; 2017-06-29 10:00)
PROC: 5A09457 Assistance with Respiratory Ventilation, 24-96 Consecutive Hours, Continuous Positive Airway Pressure (ICD-10-PCS; 2017-06-30)
PROC: 5A09357 Assistance with Respiratory Ventilation, Less than 24 Consecutive Hours, Continuous Positive Airway Pressure (ICD-10-PCS; 2017-07-03)
PROC: 5A09457 Assistance with Respiratory Ventilation, 24-96 Consecutive Hours, Continuous Positive Airway Pressure (ICD-10-PCS; 2017-07-04)
DX: Z43.3 Encounter for attention to colostomy (principal); A41.9 Sepsis, unspecified organism; K65.9 Peritonitis, unspecified; N17.9 Acute kidney failure, unspecified; K50.90 Crohn's disease, unspecified, without complications; K56.7 Ileus, unspecified; I10 Essential (primary) hypertension; K43.9 Ventral hernia without obstruction or gangrene; G47.33 Obstructive sleep apnea (adult) (pediatric); E87.6 Hypokalemia; E78.5 Hyperlipidemia, unspecified; K40.20 Bilateral inguinal hernia, without obstruction or gangrene, not specified as recurrent; E66.9 Obesity, unspecified; Z68.29 Body mass index [BMI] 29.0-29.9, adult; K43.5 Parastomal hernia without obstruction or gangrene; Z85.46 Personal history of malignant neoplasm of prostate; Z88.6 Allergy status to analgesic agent; Z90.79 Acquired absence of other genital organ(s)
CPT/HCPCS: 36415; 71045; 71046-TC; 74018; 80048; 80053; 80061; 83735-TC; 84100-TC; 85025; 85610-TC; 85730-TC; 87040-TC; 87070; 87070-TC; 87075-TC; 87081; 88305; 88307; 93005; 94660; 94760; 97110-GP; 97116-GP; 97530-GP; C9113; J0330; J1100; J1450; J1885; J2001; J2060; J2175; J2250; J2270; J2405; J2543; J2704; J2710; J2765; J3010; J3465; J3480; J3490; J7042; J7050; J7120

== ENCOUNTER 2019-12-02 23:35 | Emergency (ER) | payer BC ==
[~2019-12-02] VITALS: Ht 185.4 cm; Wt 112.5 kg
[~2019-12-02 23:35] MED LIST changes: +FLA250 PO; -HYDR-1189 PO; +HYDR-4100 PO; +L.RH1CAP PO; +LEVO750T45 PO; -LIP80 PO; -LOSA1TAB36 PO; +LOSA1TAB43 PO; +METO-290 PO
[2019-12-02 23:37] VITALS: BP_SYST 150
[2019-12-03] MEDS ORDERED: ACETAMINOPHEN/CODEINE 300 MG-30 MG TABLET PO ONE (00:45)
[2019-12-03 01:15] VITALS: BP_SYST 150
== END 2019-12-03 01:15 | disposition home or self-care (01) ==
LOC: SED 23:35
DX: S92.812A Other fracture of left foot, initial encounter for closed fracture (principal); I10 Essential (primary) hypertension; E78.5 Hyperlipidemia, unspecified; I89.1 Lymphangitis; G47.30 Sleep apnea, unspecified; Z79.899 Other long term (current) drug therapy; Z88.6 Allergy status to analgesic agent; W22.8XXA Striking against or struck by other objects, initial encounter; Y93.01 Activity, walking, marching and hiking; Y92.89 Other specified places as the place of occurrence of the external cause; Y99.8 Other external cause status
CPT/HCPCS: 99283